=== PATIENT | female | born 1960 | race Caucasian/White ===

== ENCOUNTER 2018-06-20 11:10 | Emergency (ER) | payer MEDICAID ==
[~2018-06-20] VITALS: Ht 162.6 cm; Wt 68.2 kg
[~2018-06-20 11:10] MED LIST: PROC-8 PO; SUMA100T PO
--- NOTE | 2018-06-20 12:15 | NUR ---
Pt came from [facility]; recently lost her son and has been in severe depression. Denies SI at this time. Started new medication Seroquel on friday; states she felt like a hangover the first day after taking medication.
[2018-06-20] MEDS ORDERED: SUMAtriptan succ. 6 MG/0.5ml vial SQ ONE (12:40)
[2018-06-20] MEDS ORDERED: ketorolac trometh inj. 60 MG/2 ML VIAL IM ONE (12:40)
[2018-06-20] MEDS ORDERED: SUMA100T PO (12:48)
[2018-06-20 13:22] VITALS: BP 123/76
== END 2018-06-20 13:34 | disposition home or self-care (01) ==
LOC: ER 11:10
DX: G43.909 Migraine, unspecified, not intractable, without status migrainosus (principal); Z88.8 Allergy status to other drugs, medicaments and biological substances; Z88.5 Allergy status to narcotic agent; Z79.899 Other long term (current) drug therapy
CPT/HCPCS: 82948; 93005; 96372; 99283; J1885; J3030

== ENCOUNTER 2019-01-31 16:04 | Emergency (ER) | payer MEDICAID ==
[~2019-01-31] VITALS: Ht 162.6 cm; Wt 78.0 kg
[~2019-01-31 16:04] MED LIST changes: +CHOL10002 PO; +EST1T PO; +GABA-534 PO; +HYDR-3972 PO; +LEVO125T PO; +MIRT45TA83 PO; -PROC-8 PO; +QUET-1 PO; +QUET200T PO; -SUMA100T PO; +SUMA100T16 PO; +TIZA4TAB11 PO; +TOPI50TA24 PO; +VALP250C44 PO
[2019-01-31] MEDS ORDERED: ketorolac trometh inj. 60 MG/2 ML VIAL IM ONE (17:40)
[2019-01-31] MEDS ORDERED: LORazepam 1 MG tablet PO ONE (18:35)
[2019-01-31 18:43] VITALS: BP 140/90
== END 2019-01-31 18:44 | disposition home or self-care (01) ==
LOC: ER 16:04
DX: G43.909 Migraine, unspecified, not intractable, without status migrainosus (principal); Z88.1 Allergy status to other antibiotic agents; Z88.6 Allergy status to analgesic agent; Z79.899 Other long term (current) drug therapy
CPT/HCPCS: 96372; 99283; J1885

== ENCOUNTER 2019-02-02 17:36 | Emergency (ER) | payer MEDICAID ==
[~2019-02-02] VITALS: Ht 162.6 cm; Wt 80.6 kg
[2019-02-02] MEDS ORDERED: dexamethasone sod phosphate 10mg/ml inj IV STA (18:59)
[2019-02-02] MEDS ORDERED: LORazepam 2 mg/ml vial IV ONE (19:00)
[2019-02-02] MEDS ORDERED: metoclopramide 5 mg/ml inj IV ONE (19:00)
[2019-02-02] MEDS ORDERED: ketorolac trometh. 30mg/ml inj. IV ONE (19:00)
[2019-02-02] MEDS ORDERED: normal saline 1000ML IV soln IVB ONE (19:00)
[2019-02-02 20:35] VITALS: BP 135/76
== END 2019-02-02 20:37 | disposition home or self-care (01) ==
LOC: ER 17:37
DX: G43.909 Migraine, unspecified, not intractable, without status migrainosus (principal); R11.2 Nausea with vomiting, unspecified; Z88.1 Allergy status to other antibiotic agents; Z88.6 Allergy status to analgesic agent; Z79.899 Other long term (current) drug therapy
CPT/HCPCS: 96361; 96374; 96375; 99283; J1100; J1885; J2060; J2765; J7030

== ENCOUNTER 2019-02-06 14:43 | Emergency (ER) | payer MEDICAID ==
[~2019-02-06] VITALS: Ht 162.6 cm; Wt 59.0 kg
[2019-02-06] MEDS ORDERED: proCHLORperazine 10 MG/2 ml inj IV ONE (15:30)
[2019-02-06] MEDS ORDERED: diazepam inj 5 MG/ML inj. IV ONE (15:30)
[2019-02-06] MEDS ORDERED: normal saline 1000ML IV soln IVB ONE (15:30)
[2019-02-06] MEDS ORDERED: ketorolac tromethamine 15mg/ml inj. IV ONE (15:30)
[2019-02-06] MEDS ORDERED: RIZA10TA27 PO (17:45)
[2019-02-06] MEDS ORDERED: NAPR-56 PO (17:45)
[2019-02-06 18:07] VITALS: BP 132/82
== END 2019-02-06 18:09 | disposition home or self-care (01) ==
LOC: ER 14:43
DX: G44.209 Tension-type headache, unspecified, not intractable (principal); G43.909 Migraine, unspecified, not intractable, without status migrainosus; Z88.8 Allergy status to other drugs, medicaments and biological substances; Z88.5 Allergy status to narcotic agent; Z79.899 Other long term (current) drug therapy
CPT/HCPCS: 70450; 96361; 96374; 96375; 99284; J0780; J1885; J3360; J7030

== ENCOUNTER 2019-02-23 16:29 | Emergency (ER) | payer MEDICAID ==
[~2019-02-23] VITALS: Ht 162.6 cm; Wt 80.2 kg
[~2019-02-23 16:29] MED LIST changes: +NAPR-56 PO; +RIZA10TA27 PO
[2019-02-23] MEDS ORDERED: dexamethasone sod phosphate 10mg/ml inj IV STA (18:44)
[2019-02-23] MEDS ORDERED: normal saline 1000ML IV soln IVB ONE (18:45)
[2019-02-23] MEDS ORDERED: metoclopramide 5 mg/ml inj IV ONE (18:45)
[2019-02-23] MEDS ORDERED: LORazepam 2 mg/ml vial IV ONE (18:45)
[2019-02-23] MEDS ORDERED: ketorolac trometh. 30mg/ml inj. IV ONE (18:45)
[2019-02-23 19:50] VITALS: BP 130/80
== END 2019-02-23 19:51 | disposition home or self-care (01) ==
LOC: ER 16:30
DX: G43.909 Migraine, unspecified, not intractable, without status migrainosus (principal); Z88.8 Allergy status to other drugs, medicaments and biological substances; Z79.2 Long term (current) use of antibiotics; Z79.899 Other long term (current) drug therapy
CPT/HCPCS: 96374; 96375; 99283; J1100; J1885; J2060; J2765; J7030

== ENCOUNTER 2019-02-25 14:46 | Emergency (ER) | payer MEDICAID ==
[~2019-02-25] VITALS: Ht 162.6 cm; Wt 77.0 kg
[2019-02-25] MEDS ORDERED: ketorolac tromethamine 15mg/ml inj. IV ONE (15:50)
[2019-02-25] MEDS ORDERED: normal saline 1000ml 1,000 ML IV ONE (15:50)
[2019-02-25] MEDS ORDERED: diazepam inj 5 MG/ML inj. IV ONE (15:50)
[2019-02-25] MEDS ORDERED: proCHLORperazine 10 MG/2 ml inj IV ONE (15:50)
[2019-02-25 17:23] VITALS: BP 144/97
== END 2019-02-25 17:24 | disposition home or self-care (01) ==
LOC: ER 14:47
DX: G43.909 Migraine, unspecified, not intractable, without status migrainosus (principal); G89.29 Other chronic pain; Z88.8 Allergy status to other drugs, medicaments and biological substances; Z88.5 Allergy status to narcotic agent; Z79.899 Other long term (current) drug therapy
CPT/HCPCS: 96374; 96375; 99283; J0780; J1885; J3360; J7030

== ENCOUNTER 2019-03-04 12:03 | Emergency (ER) | payer MEDICAID ==
[~2019-03-04] VITALS: Ht 162.6 cm; Wt 79.3 kg
[2019-03-04 12:11] VITALS: BP 152/80
[2019-03-04] MEDS ORDERED: normal saline 1000ML IV soln IVB ONE (13:20)
[2019-03-04] MEDS ORDERED: diazepam inj 5 MG/ML inj. IV ONE (13:20)
[2019-03-04] MEDS ORDERED: ketorolac trometh. 30mg/ml inj. IV ONE (13:20)
[2019-03-04] MEDS ORDERED: proCHLORperazine 10 MG/2 ml inj IV ONE (13:20)
== END 2019-03-04 15:05 | disposition home or self-care (01) ==
LOC: ER 12:03
DX: G43.909 Migraine, unspecified, not intractable, without status migrainosus (principal); Z88.1 Allergy status to other antibiotic agents; Z88.6 Allergy status to analgesic agent; Z88.8 Allergy status to other drugs, medicaments and biological substances; Z79.899 Other long term (current) drug therapy
CPT/HCPCS: 96374; 96375; 99283; J0780; J1885; J3360; J7030

== ENCOUNTER 2019-03-13 07:53 | Emergency (ER) | payer MEDICAID ==
[~2019-03-13] VITALS: Ht 162.6 cm; Wt 79.8 kg
[~2019-03-13 07:53] MED LIST changes: -NAPR-56 PO
[2019-03-13] MEDS ORDERED: ibuprofen 200mg tablet PO ONE (08:15)
[2019-03-13] MEDS ORDERED: proCHLORperazine 10 MG/2 ml inj IV ONE (08:40)
[2019-03-13] MEDS ORDERED: normal saline 1000ML IV soln IVB ONE (08:40)
[2019-03-13] MEDS ORDERED: SUMAtriptan succ. 6 MG/0.5ml vial SQ ONE (10:10)
[2019-03-13 11:28] VITALS: BP 144/71
== END 2019-03-13 11:31 | disposition home or self-care (01) ==
LOC: ER 07:54
DX: G43.909 Migraine, unspecified, not intractable, without status migrainosus (principal); G89.29 Other chronic pain; Z98.890 Other specified postprocedural states; Z88.5 Allergy status to narcotic agent; Z88.8 Allergy status to other drugs, medicaments and biological substances; Z79.899 Other long term (current) drug therapy
CPT/HCPCS: 96372; 96374; 99283; J0780; J7030; J7040; J3030

== ENCOUNTER 2019-03-21 17:35 | Emergency (ER) | payer MEDICAID ==
[~2019-03-21] VITALS: Ht 162.6 cm; Wt 81.0 kg
[2019-03-21 17:38] VITALS: BP 155/70
[2019-03-21] MEDS ORDERED: diazepam 5mg tablet PO ONE (18:00)
[2019-03-21] MEDS ORDERED: LIDOcaine 1% 30ml preserv. free vial IJ ONE (18:00)
[2019-03-21] MEDS ORDERED: ondansetron 4mg rapidly disintigrating tab PO ONE (18:00)
[2019-03-21] MEDS ORDERED: proCHLORperazine 10 MG/2 ml inj IM ONE (18:00)
[2019-03-21] MEDS ORDERED: ketorolac tromethamine 15mg/ml inj. IM ONE (18:00)
--- NOTE | 2019-03-21 19:14 | NUR ---
PT IS RESTING QUIETLY IN DARK ROOM, SAID SHE IS FEELING BETTER
== END 2019-03-21 19:07 | disposition home or self-care (01) ==
LOC: ER 17:36
DX: G43.909 Migraine, unspecified, not intractable, without status migrainosus (principal); G89.29 Other chronic pain; M54.2 Cervicalgia; Z98.890 Other specified postprocedural states; Z88.1 Allergy status to other antibiotic agents; Z88.6 Allergy status to analgesic agent; Z88.5 Allergy status to narcotic agent; Z79.899 Other long term (current) drug therapy
CPT/HCPCS: 20552; 96372; 99284; J0780; J1885

== ENCOUNTER 2019-04-10 10:57 | Emergency (ER) | payer MEDICAID ==
[~2019-04-10] VITALS: Ht 162.6 cm; Wt 80.6 kg
[2019-04-10 11:01] VITALS: BP 131/77
[2019-04-10] MEDS ORDERED: dexamethasone sod phosphate 10mg/ml inj IM STA (12:33)
[2019-04-10] MEDS ORDERED: proCHLORperazine 10 MG/2 ml inj IM ONE (12:35)
[2019-04-10] MEDS ORDERED: ketorolac tromethamine 15mg/ml inj. IM ONE (12:35)
[2019-04-10] MEDS ORDERED: acetaminophen/codeine 120mg/12mg per 5ml cup PO ONE (14:10)
[2019-04-10] MEDS ORDERED: ACET-3068 PO (14:21)
== END 2019-04-10 15:00 | disposition home or self-care (01) ==
LOC: ER 10:57
DX: G43.909 Migraine, unspecified, not intractable, without status migrainosus (principal); G89.29 Other chronic pain; Z98.890 Other specified postprocedural states; Z88.1 Allergy status to other antibiotic agents; Z88.6 Allergy status to analgesic agent; Z88.5 Allergy status to narcotic agent; Z79.899 Other long term (current) drug therapy
CPT/HCPCS: 96372; 99284; J0780; J1100; J1885

== ENCOUNTER 2019-05-01 09:38 | Emergency (ER) | payer MEDICAID ==
[~2019-05-01] VITALS: Ht 162.6 cm; Wt 81.0 kg
--- NOTE | 2019-05-01 09:53 | NUR ---
PATIENT AMBULATORY TO ER #4 WITH C/O MIGRAINE HEADACHE X 2 DAYS, NOT RELIEVED BY PRESCRIPTION IMITREX. STATES NAUSEA AND PHOTOPHOBIA AT PRESENT.
[2019-05-01] MEDS ORDERED: SUMAtriptan succ. 6 MG/0.5ml vial SQ ONE (10:00)
[2019-05-01] MEDS ORDERED: proCHLORperazine 10 MG/2 ml inj IV ONE (11:50)
--- NOTE | 2019-05-01 12:58 | NUR ---
Pt reports the pain in her head is still approximately 7/10 and "feels like I have been run over by a vance truck." Pt is awaiting further orders or disposition.
--- NOTE | 2019-05-01 14:19 | NUR ---
Pt reports her headache is 6/10 and that is her daily pain level so she is ready to go home.
[2019-05-01 14:53] VITALS: BP 114/69
== END 2019-05-01 14:56 | disposition home or self-care (01) ==
LOC: ER 09:38
DX: G43.909 Migraine, unspecified, not intractable, without status migrainosus (principal); F43.20 Adjustment disorder, unspecified; F32.9 Major depressive disorder, single episode, unspecified; G89.29 Other chronic pain; Z98.890 Other specified postprocedural states; Z79.899 Other long term (current) drug therapy; Z88.8 Allergy status to other drugs, medicaments and biological substances; Z88.5 Allergy status to narcotic agent
CPT/HCPCS: 96372; 96374; 99284; J0780; J3030

== ENCOUNTER 2019-06-19 12:02 | Emergency (ER) | payer MEDICAID ==
[~2019-06-19] VITALS: Ht 193 cm; Wt 82.0 kg
[2019-06-19] MEDS ORDERED: normal saline 1000ml 1,000 ML IV ONE (12:45)
[2019-06-19] MEDS ORDERED: proCHLORperazine 10 MG/2 ml inj IV ONE (12:45)
[2019-06-19] MEDS ORDERED: ketorolac tromethamine 15mg/ml inj. IV ONE (14:15)
[2019-06-19 15:43] VITALS: BP 148/91
== END 2019-06-19 15:44 | disposition home or self-care (01) ==
LOC: ER 12:02
DX: G43.909 Migraine, unspecified, not intractable, without status migrainosus (principal); G89.29 Other chronic pain; Z98.890 Other specified postprocedural states; Z88.5 Allergy status to narcotic agent; Z88.8 Allergy status to other drugs, medicaments and biological substances; Z79.899 Other long term (current) drug therapy
CPT/HCPCS: 96374; 96375; 99284; J0780; J1885; J7030

== ENCOUNTER → 2019-09-02 | Emergency (ER) | payer MEDICAID ==
[~2019-09-02] VITALS: Ht 162.6 cm; Wt 86.4 kg
[~2019-09-02] MED LIST changes: +AMIT-189 PO; +DULO-31 PO; +LIDOcaine Viscous 15ml cup MM ONE; +PANT-47 PO; +TOPI25TA49 PO; +ZOLP5TAB8 PO; +aspirin 325mg tablet PO ONE; +famotidine 20mg tablet PO ONE; +iohexol 350MG/ML 100ml bottle IV ONE; +ketorolac trometh. 30mg/ml inj. IV ONE; +mag hydrox/Alum hydrox/simeth 30ml oral suspension PO ONE; +ondansetron/PF 4mg/2ml inj IV ONE; +pantoprazole 40 MG vial IV ONE
--- NOTE | 2019-09-02 21:18 | NUR ---
pt to xray then to her room. Blood drawn already
[2019-09-02 21:32] LABS: BASOPHILS % (AUTO) 0.5 % (0-1); EOSINOPHILS % (AUTO) 0.2 % (0-6); HEMATOCRIT 45.1 % (35.0-45.0); LYMPHOCYTES # (AUTO) 2.4 X10'3 (1.1-4.8); LYMPHOCYTES % (AUTO) 24.5 % (21-51); MEAN CORPUSCULAR HGB CONC 33.4 g/dL (33.0-36.5); MEAN PLATELET VOLUME 7.6 FL (7.4-10.4); MONOCYTES # (AUTO) 0.8 X10'3 (0-0.9); MONOCYTES % (AUTO) 8.8 % (2-12); NEUTROPHILS # (AUTO) 6.4 X10'3 (1.8-7.7); PLATELET COUNT 295 X10'3 (140-440); RED BLOOD COUNT 4.55 X10'6 (4.20-5.60); RED CELL DISTRIBUTION WIDTH 14.5 % (11.5-14.5); WHITE BLOOD COUNT 9.6 X10'3 (4.5-11.0)
[2019-09-02 21:54] LABS: ALANINE AMINOTRANSFERASE 142 U/L (12-78); ALBUMIN 3.8 G/DL (3.4-5.0); ALBUMIN/GLOBULIN RATIO 0.8 (1.1-1.5); ALKALINE PHOSPHATASE 118 IU/L (46-116); ANION GAP 12 (8-16); ASPARTATE AMINO TRANSFERASE 73 U/L (10-37); BILIRUBIN,TOTAL 0.5 MG/DL (0.1-1.0); BLOOD UREA NITROGEN 9 MG/DL (7-18); BUN/CREATININE RATIO 8.3 (6.6-38.0); CALCIUM 9.4 MG/DL (8.5-10.1); CHLORIDE 101 MMOL/L (99-107); CREATININE 1.08 MG/DL (0.40-0.90); GLUCOSE 109 MG/DL (70-104); POTASSIUM 3.8 MMOL/L (3.5-5.1); SODIUM 137 MMOL/L (135-145); TOTAL CARBON DIOXIDE 24.3 MMOL/L (24-32); TOTAL PROTEIN 8.8 G/DL (6.4-8.2); eGFR 52 ML/MIN
[2019-09-03 00:28] VITALS: BP 145/79
== END | disposition home or self-care (01) ==
LOC: ER 21:04
DX: R07.89 Other chest pain (principal); R10.9 Unspecified abdominal pain; R11.2 Nausea with vomiting, unspecified; I10 Essential (primary) hypertension; G89.29 Other chronic pain; Z90.710 Acquired absence of both cervix and uterus; Z98.890 Other specified postprocedural states; Z88.5 Allergy status to narcotic agent; Z88.8 Allergy status to other drugs, medicaments and biological substances; Z79.899 Other long term (current) drug therapy
CPT/HCPCS: 36415; 71045; 71275; 80053; 84484; 85025; 93005; 96374; 96375; 99285; C9113; J2405; Q9967; J1885

== ENCOUNTER 2019-09-06 14:31 | Inpatient (IN) | payer MEDICAID ==
[~2019-09-06] VITALS: Ht 162.6 cm; Wt 89.0 kg
[~2019-09-06 14:31] MED LIST changes: -AMIT-189 PO; -DULO-31 PO; -LIDOcaine Viscous 15ml cup MM ONE; -TOPI25TA49 PO; -ZOLP5TAB8 PO; -aspirin 325mg tablet PO ONE; -famotidine 20mg tablet PO ONE; -iohexol 350MG/ML 100ml bottle IV ONE; -ketorolac trometh. 30mg/ml inj. IV ONE; -mag hydrox/Alum hydrox/simeth 30ml oral suspension PO ONE; -ondansetron/PF 4mg/2ml inj IV ONE; -pantoprazole 40 MG vial IV ONE
[2019-09-06 15:04] LABS: BASOPHILS % (AUTO) 0.3 % (0-1); EOSINOPHILS # (AUTO) 0.1 X10'3 (0-0.9); EOSINOPHILS % (AUTO) 1.2 % (0-6); HEMATOCRIT 40.7 % (35.0-45.0); HEMOGLOBIN 13.9 g/dl (12.0-16.0); LYMPHOCYTES # (AUTO) 2.5 X10'3 (1.1-4.8); LYMPHOCYTES % (AUTO) 29.9 % (21-51); MEAN CORPUSCULAR HEMOGLOBIN 33.7 PG (27.0-31.0); MEAN CORPUSCULAR HGB CONC 34.2 g/dL (33.0-36.5); MEAN CORPUSCULAR VOLUME 98.5 FL (78-98); MEAN PLATELET VOLUME 7.6 FL (7.4-10.4); NEUTROPHILS # (AUTO) 4.7 X10'3 (1.8-7.7); NEUTROPHILS % (AUTO) 56.6 % (42-75); PLATELET COUNT 316 X10'3 (140-440); RED BLOOD COUNT 4.13 X10'6 (4.20-5.60); RED CELL DISTRIBUTION WIDTH 14.3 % (11.5-14.5); WHITE BLOOD COUNT 8.3 X10'3 (4.5-11.0)
[2019-09-06 15:10] LABS: ALANINE AMINOTRANSFERASE 104 U/L (12-78); ALKALINE PHOSPHATASE 163 IU/L (46-116); ANION GAP 15 (8-16); ASPARTATE AMINO TRANSFERASE 74 U/L (10-37); BILIRUBIN,TOTAL 0.9 MG/DL (0.1-1.0); BLOOD UREA NITROGEN 13 MG/DL (7-18); BUN/CREATININE RATIO 9.6 (6.6-38.0); CALCIUM 9.9 MG/DL (8.5-10.1); CHLORIDE 95 MMOL/L (99-107); CREATININE 1.36 MG/DL (0.40-0.90); GLUCOSE 104 MG/DL (70-104); SODIUM 132 MMOL/L (135-145); TOTAL PROTEIN 8.8 G/DL (6.4-8.2); eGFR 40 ML/MIN
[2019-09-06 15:22] LABS: ALBUMIN 3.2 G/DL (3.4-5.0); ALBUMIN/GLOBULIN RATIO 0.6 (1.1-1.5)
[2019-09-06 16:08] LABS: MAGNESIUM 2.3 MG/DL (1.5-2.4); PHOSPHORUS 4.2 MG/DL (2.3-4.5)
[2019-09-06] MEDS ORDERED: normal saline 1000ML IV soln IVB ONE ×2 (16:35→18:45)
[2019-09-06] MEDS ORDERED: potassium Cl 20 mEq SR tablet PO ONE (16:35)
[2019-09-06] MEDS ORDERED: ondansetron/PF 4mg/2ml inj IV ONE (16:50)
[2019-09-06 17:49] LABS: CLARITY,URINE CLOUDY (Clear); COLOR,URINE YELLOW (Yellow); GLUCOSE, URINE NEGATIVE (Neg); KETONES,URINE TRACE mg/dl (Neg); LEUKOCYTE ESTERASE ,URINE TRACE (Neg); NITRITES, URINE NEGATIVE (Neg); OCCULT BLOOD,URINE NEGATIVE (Neg); PROTEIN,URINE 30 mg/dl (Neg)
[2019-09-06 17:58] LABS: UA COLLECTION TYPE CLN CATCH MIDSTREAM
[2019-09-06 18:07] LABS: RBC,URINE 0-2 /HPF (0-2)
[2019-09-06 18:08] LABS: BACTERIA,URINE 2+ /HPF (Neg); MUCUS STRANDS MANY /LPF (Neg); SQUAMOUS EPITHELIAL CELL,UR MANY /LPF (FEW)
[2019-09-06] MEDS ORDERED: proCHLORperazine 10 MG/2 ml inj IV ONE (19:25)
[2019-09-06] MEDS ORDERED: fentaNYL/PF 50MCG/1 ML 2ML syringe IV ONE (19:25)
[2019-09-06] MEDS ORDERED: ondansetron/PF 4mg/2ml inj IV PRN (20:10)
[2019-09-06] MEDS ORDERED: magnesium 2GM in 50ml NS 50 ML IV PRN (20:10)
[2019-09-06] MEDS ORDERED: acetaminophen 325mg tablet PO PRN (20:10)
[2019-09-06] MEDS ORDERED: magnesium 4gm in 100ml NS 100 ML IV PRN (20:10)
[2019-09-06] MEDS ORDERED: diphenhydrAMINE 25mg capsule PO PRN (20:10)
[2019-09-06] MEDS ORDERED: magnesium hydroxide 30ml (MOM) UD suspension PO PRN (20:10)
[2019-09-06] MEDS ORDERED: mag hydrox/Alum hydrox/simeth 30ml oral suspension PO PRN (20:10)
[2019-09-06] MEDS ORDERED: NORMAL SALINE IV ONE (20:10)
[2019-09-06] MEDS ORDERED: magnesium Cl slow-release 64mg tablet PO PRN (20:10)
[2019-09-06] MEDS ORDERED: bisacodyl 10mg suppository rectal RC PRN (20:10)
[2019-09-06] MEDS ORDERED: potassium CL 10mEq/100ml bag 100 ML IV PRN (20:10)
[2019-09-06] MEDS ORDERED: potassium Cl 20 mEq SR tablet PO PRN ×2 (20:10)
[2019-09-06] MEDS ORDERED: SINCALIDE IV ONE (20:10)
[2019-09-06] MEDS ORDERED: fentaNYL/PF 50MCG/1 ML 2ML syringe IV PRN (20:10)
[2019-09-06] MEDS ORDERED: metoclopramide 5 mg/ml inj IV PRN (20:10)
[2019-09-06] MEDS ORDERED: diphenhydrAMINE 50 mg/ml inj IV PRN (20:10)
[2019-09-06] MEDS ORDERED: TOPI25TA49 PO (20:37)
[2019-09-06] MEDS ORDERED: DULO-31 PO (20:37)
[2019-09-06] MEDS ORDERED: PANT-47 PO (20:37)
[2019-09-06] MEDS ORDERED: AMIT-189 PO (20:37)
[2019-09-06] MEDS ORDERED: ZOLP5TAB8 PO (20:37)
[2019-09-06 20:38] LABS: HEMOGLOBIN A1C 5.6 % (4.5-6.2)
[2019-09-06] MEDS ORDERED: temazepam 15mg capsule PO PRN (21:00)
[2019-09-06 21:04] LABS: ETHANOL < 0.010 GM/DL (0.0-0.010)
[2019-09-06 21:15] LABS: URINE AMPHETAMINE SCREEN NEGATIVE (Neg); URINE BARBITUATE SCREEN NEGATIVE (Neg); URINE BENZODIAZEPINES SCREEN NEGATIVE (Neg); URINE CANNABINOID SCREEN NEGATIVE (Neg); URINE COCAINE SCREEN NEGATIVE (Neg); URINE METHADONE SCREEN NEGATIVE (Neg); URINE OPIATE SCREEN NEGATIVE (Neg); URINE PHENCYCLIDINE SCREEN NEGATIVE (Neg)
--- NOTE | 2019-09-06 21:52 | NUR ---
attemped to reach the floor for report.
--- NOTE | 2019-09-06 22:30 | NUR ---
PT ARRIVED FROM ER. VSS. PT HAS BEEN ORIENTED TO THE FLOOR. RECEIVED REPORT FROM GERTRUDIS PRIOR TO PT'S ARRIVAL.
[2019-09-06] MEDS: normal saline 1000ml 1,000 ML IV SCH (23:01)
[2019-09-06] MEDS ORDERED: zolpidem 5mg tablet PO PRN (23:10)
--- NOTE | 2019-09-06 23:17 | NUR ---
[id number] VERÓNICA DENSON 58 HERE FOR CHOLECYSTITIS HAS FENTANYL FOR PAIN BUT WE CAN'T GIVE ON OUR FLOOR. PT IS WILLING TO TRY DILAUDID. THANK YOU. FROM 0735 VICKI
[2019-09-06 23:26] VITALS: BP 141/77
[2019-09-07] VITALS (13 sets, daily range): BP systolic 91–150; BP diastolic 40–78
[2019-09-07] MEDS ORDERED: hyDROXYzine 50 mg/ml injection ***IM only IM PRN (00:45)
[2019-09-07] MEDS: morphine 4 MG/ML inj SYRINge IV PRN ×2 (01:16→10:56)
--- NOTE | 2019-09-07 06:20 | NUR ---
Problems reprioritized. Patient report given, questions answered & plan of care reviewed with GLENN JIM AND GLENN NELSON.
[2019-09-07 06:34] LABS: BASOPHILS % (AUTO) 0.6 % (0-1); EOSINOPHILS # (AUTO) 0.2 X10'3 (0-0.9); EOSINOPHILS % (AUTO) 4.2 % (0-6); HEMATOCRIT 36.2 % (35.0-45.0); HEMOGLOBIN 12.1 g/dl (12.0-16.0); LYMPHOCYTES # (AUTO) 1.3 X10'3 (1.1-4.8); LYMPHOCYTES % (AUTO) 23.6 % (21-51); MEAN CORPUSCULAR HEMOGLOBIN 32.8 PG (27.0-31.0); MEAN CORPUSCULAR HGB CONC 33.4 g/dL (33.0-36.5); MEAN CORPUSCULAR VOLUME 98.4 FL (78-98); MEAN PLATELET VOLUME 7.4 FL (7.4-10.4); MONOCYTES # (AUTO) 0.5 X10'3 (0-0.9); MONOCYTES % (AUTO) 9.7 % (2-12); NEUTROPHILS # (AUTO) 3.3 X10'3 (1.8-7.7); NEUTROPHILS % (AUTO) 61.9 % (42-75); PLATELET COUNT 268 X10'3 (140-440); RED BLOOD COUNT 3.68 X10'6 (4.20-5.60); RED CELL DISTRIBUTION WIDTH 14.3 % (11.5-14.5); WHITE BLOOD COUNT 5.3 X10'3 (4.5-11.0)
[2019-09-07 06:48] LABS: ALANINE AMINOTRANSFERASE 183 U/L (12-78); ALBUMIN 2.4 G/DL (3.4-5.0); ALBUMIN/GLOBULIN RATIO 0.5 (1.1-1.5); ALKALINE PHOSPHATASE 176 IU/L (46-116); ANION GAP 10 (8-16); ASPARTATE AMINO TRANSFERASE 310 U/L (10-37); BILIRUBIN,TOTAL 1.1 MG/DL (0.1-1.0); BLOOD UREA NITROGEN 11 MG/DL (7-18); BUN/CREATININE RATIO 12.6 (6.6-38.0); CALCIUM 8.3 MG/DL (8.5-10.1); CHLORIDE 107 MMOL/L (99-107); CREATININE 0.87 MG/DL (0.40-0.90); GLUCOSE 74 MG/DL (70-104); POTASSIUM 3.5 MMOL/L (3.5-5.1); SODIUM 140 MMOL/L (135-145); TOTAL CARBON DIOXIDE 23.2 MMOL/L (24-32); TOTAL PROTEIN 6.9 G/DL (6.4-8.2); eGFR 67 ML/MIN
--- NOTE | 2019-09-07 06:51 | NUR ---
Patient in room ORTHO 4015. I have received report from Heather ELIZABETH and had the opportunity to ask questions and assume patient care.
[2019-09-07 06:57] LABS: CHOL/HDL RATIO 4.4 (0.00-4.99); CHOLESTEROL 170 MG/DL (0-200); HDL CHOLESTEROL 39 MG/DL (35-60); LDL CHOLESTEROL 92 MG/DL (50-100); MAGNESIUM 1.8 MG/DL (1.5-2.4); PHOSPHORUS 2.7 MG/DL (2.3-4.5); TRIGLYCERIDES 97 MG/DL (20-135)
[2019-09-07] MEDS ORDERED: levoTHYROXINE 125mcg tablet PO SCH (08:00)
[2019-09-07] MEDS ORDERED: valproic acid 250mg capsule PO SCH (08:00)
[2019-09-07] MEDS: K and/or MAG REPLACEMENT MC SCH ×2 (08:00→19:45)
[2019-09-07] MEDS ORDERED: gabapentin 400mg capsule PO SCH (08:00)
[2019-09-07] MEDS: topiramate 25mg tablet PO SCH (08:16)
[2019-09-07] MEDS: pantoprazole 40mg Tablet.DR PO SCH (08:17)
[2019-09-07] MEDS: duloxetine 30mg CAPSULE.DR PO SCH (08:17)
[2019-09-07] MEDS: normal saline 1000ml 1,000 ML IV SCH ×2 (08:23→19:54)
[2019-09-07] MEDS ORDERED: SINCALIDE IV ONE (09:00)
[2019-09-07] MEDS ORDERED: NORMAL SALINE IV ONE (09:00)
[2019-09-07] MEDS: ketorolac tromethamine 15mg/ml inj. IV PRN (09:01)
[2019-09-07] MEDS ORDERED: BUPIVAcaine/PF 2.5 mg/ml (0.25%) 30ml vial ONE (14:37)
[2019-09-07] MEDS ORDERED: ringers solution, lacted 1,000 ML IV SCH (14:40)
[2019-09-07] MEDS ORDERED: ondansetron/PF 4mg/2ml inj IV PRN (14:40)
[2019-09-07] MEDS ORDERED: hydrALAZINE 20mg/ml inj. IV PRN (14:40)
[2019-09-07] MEDS ORDERED: labetalol 20mg/4ml (5mg/ml) syringe IV PRN (14:40)
[2019-09-07] MEDS ORDERED: fentaNYL/PF 50MCG/1 ML 2ML syringe IV PRN ×3 (14:40→17:30)
[2019-09-07] MEDS ORDERED: midazolam 2 mg/2 ml injection ONE ×3 (14:48→15:37)
[2019-09-07] MEDS ORDERED: LIDOcaine 2% (20mg/ml) 5ml vial ONE (14:48)
[2019-09-07] MEDS ORDERED: propofol inj 20 ML IV ONE (14:48)
[2019-09-07] MEDS ORDERED: rocuronium 10mg/ml inj IV ONE ×2 (14:49→17:22)
[2019-09-07] MEDS ORDERED: famotidine/PF 10 mg/ml inj IV ONE (15:20)
[2019-09-07] MEDS ORDERED: sevoflurane 250ml liquid IH ONE (15:31)
[2019-09-07] MEDS ORDERED: dexamethasone sod phosphate 10mg/ml inj ONE (15:31)
[2019-09-07] MEDS ORDERED: ondansetron/PF 4mg/2ml inj ONE (15:31)
[2019-09-07] MEDS ORDERED: albumin (Human) 5% 250ml BOTTLE IV ONE (15:31)
[2019-09-07] MEDS ORDERED: ePHEDrine 50MG/ML INJ. ONE (15:31)
[2019-09-07] MEDS ORDERED: levoFLOXACIN-Levaquin 500mg/D5 100 ML IV ONE (15:43)
[2019-09-07] MEDS ORDERED: fentaNYL/PF 50MCG/1 ML 2ML syringe ONE ×2 (15:56→17:07)
--- NOTE | 2019-09-07 16:20 | NUR ---
Problems reprioritized. Patient report given, questions answered & plan of care reviewed with Charissa ELIZABETH.
[2019-09-07] MEDS ORDERED: NORepinephrine 1 mg/ml inj IV ONE (17:05)
--- NOTE | 2019-09-07 18:25 | NUR ---
Received from OR via bed , accompanied by Anesthesiologist dr marshall and report given by Anesthesiolgist. patient vented, no s/s of pain, v/s stable, f/c draining clear yellow urine, restraints on bue, large abdomen dressing cdi w/ christa with minimal output. 20g rue, cl right neck. ARTLINE LUE. SEDATION DIPROVAN AT 5MCG/KG/MIN, FENTANYL GTT AT 35MCG/HR. SCD ON. CXY XRAY DONE AND ET TUBE ADJUSTED TO 21CM AT LIPS AFTER INSTRUCTED BY DR MARSHALL. SEE RT NOTES.
[2019-09-07 18:41] LABS: ABG BASE EXCESS -5.4 mmol/L (-2.0-2.0); ABG HCO3 19.1 mmol/L (22.0-26.0); ABG OXYGEN SATURATION 98.5 % (94-97); ABG PCO2 (T) 33.1 mmHg (32.0-45.0); ABG PO2 (T) 132.6 mmHg (75.0-100.0); FCOHb 0.3 % (0.0-3.9); FMetHb 0.3 % (0.0-1.5); FO2Hb 97.9 % (94-97); PATIENT TEMPERATURE 36.7; PEEP 5 cm H2O; RESPIRATORY RATE 12 b/min; TIDAL VOLUME 550 mL; TOTAL HEMOGLOBIN 10.2 G/dl (12.0-16.0)
--- NOTE | 2019-09-07 18:55 | NUR ---
patient vented, no s/s of pain, v/s stable, f/c draining clear yellow urine, restraints on bue, large abdomen dressing cdi w/ christa with minimal output. 20g rue, cl right neck. ARTLINE LUE. SEDATION DIPROVAN AT 10MCG/KG/MIN, FENTANYL GTT AT 50MCG/HR. SCD ON. ET TUBE 21CM AT LIPS . SEE RT NOTES. BG 85. NG TUBE LEFT NARES AT INTERMITTENT LWS. DR PASTOR AT BEDSIDE NOW. PATIENT RECOVERED IN CICU 2008. PATIENT WITH ALL BELONGINGS 2008 , REPORT GIVEN TO CICU RN WHO HAS TAKEN OVER PATIENT CARE. BED LOW, CALL LIGHT PRESENT AND VSS.
--- NOTE | 2019-09-07 19:00 | NUR ---
Patient in room CICU 2008. I have received report from Xander ELIZABETH from recovery and had the opportunity to ask questions and assume patient care.
[2019-09-07 19:01] LABS: BASOPHILS % (AUTO) 0.8 % (0-1); EOSINOPHILS # (AUTO) 0.2 X10'3 (0-0.9); EOSINOPHILS % (AUTO) 2.6 % (0-6); HEMOGLOBIN 9.4 g/dl (12.0-16.0); LYMPHOCYTES # (AUTO) 0.7 X10'3 (1.1-4.8); LYMPHOCYTES % (AUTO) 11.2 % (21-51); MEAN CORPUSCULAR HEMOGLOBIN 33.1 PG (27.0-31.0); MEAN CORPUSCULAR HGB CONC 33.6 g/dL (33.0-36.5); MEAN CORPUSCULAR VOLUME 98.7 FL (78-98); MEAN PLATELET VOLUME 7.3 FL (7.4-10.4); MONOCYTES # (AUTO) 0.3 X10'3 (0-0.9); MONOCYTES % (AUTO) 4.5 % (2-12); NEUTROPHILS % (AUTO) 80.9 % (42-75); PLATELET COUNT 229 X10'3 (140-440); RED BLOOD COUNT 2.83 X10'6 (4.20-5.60); RED CELL DISTRIBUTION WIDTH 14.2 % (11.5-14.5); WHITE BLOOD COUNT 6.1 X10'3 (4.5-11.0)
[2019-09-07 19:15] LABS: PARTIAL THROMBOPLASTIN TIME 29 SECONDS (22-32)
--- NOTE | 2019-09-07 19:15 | NUR ---
PT arrived to around 1814 accompanied by OR crew as well as online content developer's Xander and Caryl. PT in intubated and sedated, tolerating vent settings well. VSS. PT has CVL to RT neck and A-line to LT radial. PT has large Drsg to ABD that is CDI. MARLON in place with minimal serosanguineous drainage noted. Herrera in place draining to gravity. Bed is locked and low. Bilat soft wrist restraints in place and secure. Will continue to monitor.
[2019-09-07 19:17] LABS: ALANINE AMINOTRANSFERASE 314 U/L (12-78); ALBUMIN 2.3 G/DL (3.4-5.0); ALBUMIN/GLOBULIN RATIO 0.7 (1.1-1.5); ALKALINE PHOSPHATASE 165 IU/L (46-116); ANION GAP 14 (8-16); ASPARTATE AMINO TRANSFERASE 589 U/L (10-37); BILIRUBIN,TOTAL 1.2 MG/DL (0.1-1.0); BLOOD UREA NITROGEN 12 MG/DL (7-18); BUN/CREATININE RATIO 16.4 (6.6-38.0); CALCIUM 7.9 MG/DL (8.5-10.1); CHLORIDE 105 MMOL/L (99-107); CREATININE 0.73 MG/DL (0.40-0.90); GLUCOSE 88 MG/DL (70-104); MAGNESIUM 1.9 MG/DL (1.5-2.4); PHOSPHORUS 2.5 MG/DL (2.3-4.5); POTASSIUM 3.7 MMOL/L (3.5-5.1); SODIUM 139 MMOL/L (135-145); TOTAL CARBON DIOXIDE 20.3 MMOL/L (24-32); TOTAL PROTEIN 5.8 G/DL (6.4-8.2); eGFR 82 ML/MIN
[2019-09-07] MEDS: propofol 1000mg/100ml bottle 100 ML IV SCH (19:55)
[2019-09-07] MEDS: FENTANYL-0.9 % NACL/PF 100 ML IV PRN (19:56)
[2019-09-07] MEDS ORDERED: amitriptyline 50mg tablet PO SCH (21:00)
[2019-09-07] MEDS ORDERED: mirtazapine 15mg tablet PO SCH (21:00)
[2019-09-07] MEDS ORDERED: tizanidine 4mg tablet PO SCH (21:00)
[2019-09-07] MEDS: valproate sod 250mg/5ml UD oral syrup NG SCH (21:03)
[2019-09-07] MEDS ORDERED: levoTHYROXINE 125mcg tablet NG SCH (21:05)
[2019-09-07] MEDS ORDERED: mag hydrox/Alum hydrox/simeth 30ml oral suspension NG PRN (21:08)
[2019-09-07] MEDS ORDERED: POTASSIUM BICARB 20meq eff tab 20 MEQ TABLET.EFF NG PRN (21:12)
[2019-09-07] MEDS ORDERED: zolpidem 5mg tablet NG PRN (21:13)
[2019-09-07] MEDS ORDERED: amitriptyline 50mg tablet NG ONE (21:25)
[2019-09-07] MEDS ORDERED: gabapentin 400mg capsule NG ONE (21:25)
[2019-09-07] MEDS ORDERED: mirtazapine 15mg tablet NG ONE (21:25)
[2019-09-08] VITALS (28 sets, daily range): BP systolic 86–159; BP diastolic 44–66
--- NOTE | 2019-09-08 02:00 | NUR ---
PT resting with no s/s of distress noted. PT tolerating sedation well, wakes up easily. Bed is locked and low. Bilat soft wrist restraints in place and secure. Will continue to monitor.
[2019-09-08 02:50] LABS: BASOPHILS % (AUTO) 0.2 % (0-1); EOSINOPHILS % (AUTO) 0.1 % (0-6); HEMATOCRIT 26.5 % (35.0-45.0); HEMOGLOBIN 8.7 g/dl (12.0-16.0); LYMPHOCYTES # (AUTO) 0.7 X10'3 (1.1-4.8); LYMPHOCYTES % (AUTO) 11.3 % (21-51); MEAN CORPUSCULAR HEMOGLOBIN 32.6 PG (27.0-31.0); MEAN CORPUSCULAR HGB CONC 32.9 g/dL (33.0-36.5); MEAN CORPUSCULAR VOLUME 99.1 FL (78-98); MEAN PLATELET VOLUME 7.7 FL (7.4-10.4); MONOCYTES # (AUTO) 0.4 X10'3 (0-0.9); MONOCYTES % (AUTO) 7.3 % (2-12); NEUTROPHILS % (AUTO) 81.1 % (42-75); PLATELET COUNT 253 X10'3 (140-440); RED BLOOD COUNT 2.67 X10'6 (4.20-5.60); RED CELL DISTRIBUTION WIDTH 14.4 % (11.5-14.5); WHITE BLOOD COUNT 6.1 X10'3 (4.5-11.0)
[2019-09-08 03:10] LABS: ALANINE AMINOTRANSFERASE 270 U/L (12-78); ALBUMIN/GLOBULIN RATIO 0.6 (1.1-1.5); ALKALINE PHOSPHATASE 146 IU/L (46-116); ANION GAP 11 (8-16); ASPARTATE AMINO TRANSFERASE 392 U/L (10-37); BILIRUBIN,TOTAL 0.6 MG/DL (0.1-1.0); BLOOD UREA NITROGEN 8 MG/DL (7-18); CALCIUM 7.7 MG/DL (8.5-10.1); CHLORIDE 107 MMOL/L (99-107); CREATININE 0.57 MG/DL (0.40-0.90); GLUCOSE 105 MG/DL (70-104); MAGNESIUM 1.8 MG/DL (1.5-2.4); PHOSPHORUS 3.2 MG/DL (2.3-4.5); POTASSIUM 4.1 MMOL/L (3.5-5.1); SODIUM 139 MMOL/L (135-145); TOTAL CARBON DIOXIDE 21.2 MMOL/L (24-32); TOTAL PROTEIN 5.5 G/DL (6.4-8.2); TRIGLYCERIDES 87 MG/DL (20-135); eGFR > 90 ML/MIN
[2019-09-08 03:50] LABS: ABG BASE EXCESS -5.2 mmol/L (-2.0-2.0); ABG HCO3 18.2 mmol/L (22.0-26.0); ABG OXYGEN SATURATION 95.7 % (94-97); ABG PCO2 (T) 29.1 mmHg (32.0-45.0); ABG PO2 (T) 81.7 mmHg (75.0-100.0); FMetHb 0.1 % (0.0-1.5); FO2Hb 95.6 % (94-97); PATIENT TEMPERATURE 37.7; PEEP 5 cm H2O; RESPIRATORY RATE 12 b/min; TIDAL VOLUME 550 mL; TOTAL HEMOGLOBIN 9.4 G/dl (12.0-16.0)
[2019-09-08] MEDS: normal saline 1000ml 1,000 ML IV SCH ×3 (04:08→21:52)
[2019-09-08] MEDS: propofol 1000mg/100ml bottle 100 ML IV SCH ×3 (04:09→23:58)
[2019-09-08] MEDS: FENTANYL-0.9 % NACL/PF 100 ML IV PRN ×2 (05:15→15:55)
--- NOTE | 2019-09-08 06:43 | NUR ---
Problems reprioritized. Patient report given, questions answered & plan of care reviewed with Noemi ELIZABETH.
[2019-09-08] MEDS: valproate sod 250mg/5ml UD oral syrup NG SCH ×2 (07:34→20:33)
[2019-09-08] MEDS: levoFLOXACIN-Levaquin 750MG/D5 150 ML IV SCH (07:34)
[2019-09-08] MEDS: pantoprazole 40mg Tablet.DR PO SCH (07:34)
[2019-09-08] MEDS: duloxetine 30mg CAPSULE.DR PO SCH (07:34)
[2019-09-08] MEDS: acetaminophen 325mg/10.15ml oral unit dose solution NG PRN ×2 (07:35→23:59)
[2019-09-08] MEDS: gabapentin 400mg capsule NG SCH ×2 (07:35→20:33)
[2019-09-08] MEDS: topiramate 25mg tablet PO SCH (07:35)
[2019-09-08] MEDS: K and/or MAG REPLACEMENT MC SCH ×2 (08:00→20:00)
--- NOTE | 2019-09-08 13:13 | NUR ---
Patient refusing oral care. Educated on importance and risk of VAP.
--- NOTE | 2019-09-08 16:01 | NUR ---
Patient is intubated s/p open kalpana 09/06, pending back to OR for closure. Will be NPO for surgery. Will continue to follow and monitor for OR closure and extubation. If prolonged intubation after abdominal closure will benefit from nutrition support. Recommend: 1. if prolonged intubation after surgical wound closure may benefit from nutrition support to meet needs. 2. weight per rx Addendum: 09/08/19 at [address] Amended: Links added.
[2019-09-08] MEDS ORDERED: midazolam 2 mg/2 ml injection ONE (18:17)
[2019-09-08] MEDS ORDERED: fentaNYL/PF 50MCG/1 ML 2ML syringe ONE (18:17)
[2019-09-08] MEDS ORDERED: sevoflurane 250ml liquid IH ONE (18:27)
--- NOTE | 2019-09-08 18:28 | NUR ---
Patient in room CICU 2009. I have received report from Noemi ELIZABETH, and had the opportunity to ask questions and assume patient care.
[2019-09-08 18:34] LABS: BASOPHILS # (AUTO) 0.1 X10'3 (0-0.2); EOSINOPHILS # (AUTO) 0.1 X10'3 (0-0.9); EOSINOPHILS % (AUTO) 0.8 % (0-6); HEMOGLOBIN 8.8 g/dl (12.0-16.0); LYMPHOCYTES # (AUTO) 1.5 X10'3 (1.1-4.8); LYMPHOCYTES % (AUTO) 18.9 % (21-51); MEAN CORPUSCULAR HEMOGLOBIN 33.2 PG (27.0-31.0); MEAN CORPUSCULAR HGB CONC 33.7 g/dL (33.0-36.5); MEAN CORPUSCULAR VOLUME 98.4 FL (78-98); MEAN PLATELET VOLUME 7.6 FL (7.4-10.4); MONOCYTES # (AUTO) 0.8 X10'3 (0-0.9); MONOCYTES % (AUTO) 10.1 % (2-12); NEUTROPHILS # (AUTO) 5.4 X10'3 (1.8-7.7); NEUTROPHILS % (AUTO) 69.2 % (42-75); PLATELET COUNT 293 X10'3 (140-440); RED BLOOD COUNT 2.64 X10'6 (4.20-5.60); RED CELL DISTRIBUTION WIDTH 14.4 % (11.5-14.5); WHITE BLOOD COUNT 7.9 X10'3 (4.5-11.0)
[2019-09-08] MEDS ORDERED: rocuronium 10mg/ml inj IV ONE (18:47)
--- NOTE | 2019-09-08 19:30 | NUR ---
RECD PT FROM OR, REPORT GIVEN BY DR OLVERA. AGREE WITH NOTE FROM PRIMARY RN.
--- NOTE | 2019-09-08 19:30 | NUR ---
PT arrived back from OR accompanied by OR team as well as acetone recovery worker at bedside. PT placed on bedside monitor. PT remains intubated and sedated. Tolerating well. O2 sat >97%. VSS. MARLON drain to RUQ with serosanguineous drainage noted. IVF infusing to CVL, A-Line to LT radial is transduced to pressure tubing and lines have been zeroed. Bilat soft wrist restraints in place and secure. Bed is locked and low. Will continue to monitor.
--- NOTE | 2019-09-08 20:20 | NUR ---
Report GIVEN to receiving nurse. Transferred CAre to [facility]. Belongings in pt room. vss. oral care completed. ngt to liws. fc patent, scds on. Special Issues communicated to receiving nurse.
[2019-09-08] MEDS: mineral oil/petrolatum ophthal oint EACHEYE SCH (20:33)
[2019-09-08] MEDS: amitriptyline 50mg tablet NG SCH (20:33)
[2019-09-08] MEDS: tizanidine 4mg tablet NG SCH (20:34)
[2019-09-08] MEDS: lactobacillus rhamnosus 10,000 MMU CELLS/CAPSULE NG SCH (20:34)
[2019-09-08] MEDS: mirtazapine 15mg tablet NG SCH (20:34)
[2019-09-09] VITALS (22 sets, daily range): BP systolic 88–129; BP diastolic 45–81
--- NOTE | 2019-09-09 | NUR ---
PRN Tylenol given for temp of 38.4. Will continue to monitor.
[2019-09-09 03:10] LABS: ABG HCO3 20.1 mmol/L (22.0-26.0); ABG OXYGEN SATURATION 98.7 % (94-97); ABG PCO2 (T) 30.9 mmHg (32.0-45.0); ABG PO2 (T) 137.2 mmHg (75.0-100.0); FCOHb 0.3 % (0.0-3.9); FMetHb 0.1 % (0.0-1.5); FO2Hb 98.3 % (94-97); PATIENT TEMPERATURE 38.6; PEEP 5 cm H2O; RESPIRATORY RATE 14 b/min; TIDAL VOLUME 500 mL; TOTAL HEMOGLOBIN 9.3 G/dl (12.0-16.0)
[2019-09-09 03:15] LABS: BASOPHILS % (AUTO) 0.4 % (0-1); EOSINOPHILS # (AUTO) 0.1 X10'3 (0-0.9); HEMATOCRIT 25.7 % (35.0-45.0); HEMOGLOBIN 8.6 g/dl (12.0-16.0); LYMPHOCYTES # (AUTO) 1.3 X10'3 (1.1-4.8); LYMPHOCYTES % (AUTO) 18.7 % (21-51); MEAN CORPUSCULAR HEMOGLOBIN 33.1 PG (27.0-31.0); MEAN CORPUSCULAR HGB CONC 33.5 g/dL (33.0-36.5); MEAN CORPUSCULAR VOLUME 98.8 FL (78-98); MEAN PLATELET VOLUME 7.7 FL (7.4-10.4); MONOCYTES # (AUTO) 0.6 X10'3 (0-0.9); MONOCYTES % (AUTO) 9.2 % (2-12); NEUTROPHILS # (AUTO) 4.8 X10'3 (1.8-7.7); NEUTROPHILS % (AUTO) 70.7 % (42-75); PLATELET COUNT 298 X10'3 (140-440); RED CELL DISTRIBUTION WIDTH 14.8 % (11.5-14.5); WHITE BLOOD COUNT 6.8 X10'3 (4.5-11.0)
[2019-09-09 03:32] LABS: ALANINE AMINOTRANSFERASE 307 U/L (12-78); ALBUMIN 1.7 G/DL (3.4-5.0); ALBUMIN/GLOBULIN RATIO 0.5 (1.1-1.5); ALKALINE PHOSPHATASE 142 IU/L (46-116); ANION GAP 11 (8-16); ASPARTATE AMINO TRANSFERASE 467 U/L (10-37); BLOOD UREA NITROGEN 6 MG/DL (7-18); BUN/CREATININE RATIO 7.8 (6.6-38.0); CALCIUM 7.4 MG/DL (8.5-10.1); CHLORIDE 106 MMOL/L (99-107); CREATININE 0.77 MG/DL (0.40-0.90); GLUCOSE 102 MG/DL (70-104); MAGNESIUM 1.8 MG/DL (1.5-2.4); PHOSPHORUS 2.5 MG/DL (2.3-4.5); POTASSIUM 3.1 MMOL/L (3.5-5.1); SODIUM 141 MMOL/L (135-145); TOTAL CARBON DIOXIDE 24.2 MMOL/L (24-32); TOTAL PROTEIN 5.2 G/DL (6.4-8.2); eGFR 77 ML/MIN
[2019-09-09] MEDS: FENTANYL-0.9 % NACL/PF 100 ML IV PRN (03:33)
[2019-09-09] MEDS: mineral oil/petrolatum ophthal oint EACHEYE SCH ×4 (03:33→20:00)
[2019-09-09] MEDS: potassium CL 10mEq/100ml bag 100 ML IV PRN ×4 (03:36→10:36)
[2019-09-09] MEDS: POTASSIUM BICARB 20meq eff tab 20 MEQ TABLET.EFF NG PRN ×2 (05:13→09:26)
[2019-09-09] MEDS: propofol 1000mg/100ml bottle 100 ML IV SCH (05:26)
--- NOTE | 2019-09-09 06:21 | NUR ---
Problems reprioritized. Patient report given, questions answered & plan of care reviewed with Noemi ELIZABETH.
[2019-09-09] MEDS: valproate sod 250mg/5ml UD oral syrup NG SCH ×2 (07:14→19:45)
[2019-09-09] MEDS: levoFLOXACIN-Levaquin 750MG/D5 150 ML IV SCH (07:14)
[2019-09-09] MEDS: pantoprazole 40mg Tablet.DR PO SCH (07:15)
[2019-09-09] MEDS: levoTHYROXINE 125mcg tablet NG SCH (07:15)
[2019-09-09] MEDS: topiramate 25mg tablet PO SCH (07:15)
[2019-09-09] MEDS: gabapentin 400mg capsule NG SCH ×2 (07:15→19:45)
[2019-09-09] MEDS: duloxetine 30mg CAPSULE.DR PO SCH (07:15)
[2019-09-09] MEDS: lactobacillus rhamnosus 10,000 MMU CELLS/CAPSULE NG SCH ×2 (07:15→19:45)
[2019-09-09] MEDS: acetaminophen 325mg/10.15ml oral unit dose solution NG PRN (07:16)
[2019-09-09] MEDS: normal saline 1000ml 1,000 ML IV SCH ×2 (07:19→18:07)
[2019-09-09] MEDS: K and/or MAG REPLACEMENT MC SCH ×2 (07:19→20:00)
[2019-09-09 09:08] LABS: MAGNESIUM 1.7 MG/DL (1.5-2.4); PHOSPHORUS 2.5 MG/DL (2.3-4.5); POTASSIUM 3.3 MMOL/L (3.5-5.1)
--- NOTE | 2019-09-09 10:45 | NUR ---
Dr. Santiago at bedside. New order to extubate patient based on current weaning parameters. at to d/c arterial line from left wrist.
--- NOTE | 2019-09-09 11:15 | NUR ---
RT at at bedside. Patient extubated, tolerated procedure well. SP)2 99% on 2L via NC. Will continue to monitor.
[2019-09-09] MEDS: morphine 4 MG/ML inj SYRINge IV PRN ×2 (12:12→16:48)
--- NOTE | 2019-09-09 18:20 | NUR ---
Dr Bill at bedside assessing PT. PT asked when the NGT can come out. Nursing received verbal order for NGT ok to be removed if PT has has less than 200ml out. Will continue to monitor.
[2019-09-09] MEDS ORDERED: morphine/NS 5 mg/ml CADD 50 ML IV SCH (18:32)
[2019-09-09] MEDS ORDERED: CADD PCA waste documentation MC PRN (18:35)
[2019-09-09] MEDS ORDERED: naloxone 0.4 mg/ml inj IV PRN (18:35)
[2019-09-09] MEDS: ketorolac tromethamine 15mg/ml inj. IV PRN (18:49)
[2019-09-09] MEDS: tizanidine 4mg tablet NG SCH (21:00)
[2019-09-09] MEDS: mirtazapine 15mg tablet NG SCH (21:45)
[2019-09-09] MEDS: amitriptyline 50mg tablet NG SCH (21:46)
[2019-09-10] VITALS (24 sets, daily range): BP systolic 88–149; BP diastolic 44–80
[2019-09-10] MEDS: mineral oil/petrolatum ophthal oint EACHEYE SCH ×4 (02:00→20:00)
[2019-09-10] MEDS: normal saline 1000ml 1,000 ML IV SCH ×3 (02:56→18:08)
[2019-09-10] MEDS: acetaminophen 325mg/10.15ml oral unit dose solution NG PRN (03:01)
[2019-09-10 03:10] LABS: BASOPHILS % (AUTO) 0.6 % (0-1); EOSINOPHILS # (AUTO) 0.2 X10'3 (0-0.9); EOSINOPHILS % (AUTO) 3.1 % (0-6); LYMPHOCYTES # (AUTO) 1.7 X10'3 (1.1-4.8); LYMPHOCYTES % (AUTO) 21.4 % (21-51); MEAN CORPUSCULAR HGB CONC 33.3 g/dL (33.0-36.5); MEAN CORPUSCULAR VOLUME 99.2 FL (78-98); MEAN PLATELET VOLUME 7.4 FL (7.4-10.4); MONOCYTES # (AUTO) 0.8 X10'3 (0-0.9); MONOCYTES % (AUTO) 9.5 % (2-12); NEUTROPHILS # (AUTO) 5.2 X10'3 (1.8-7.7); NEUTROPHILS % (AUTO) 65.4 % (42-75); PLATELET COUNT 310 X10'3 (140-440); RED BLOOD COUNT 2.42 X10'6 (4.20-5.60); RED CELL DISTRIBUTION WIDTH 14.7 % (11.5-14.5)
--- NOTE | 2019-09-10 03:15 | NUR ---
PT has temp of 38.3. PRN Tylenol given. Will continue to monitor.
[2019-09-10 03:26] LABS: ALANINE AMINOTRANSFERASE 260 U/L (12-78); ALBUMIN 1.7 G/DL (3.4-5.0); ALBUMIN/GLOBULIN RATIO 0.5 (1.1-1.5); ALKALINE PHOSPHATASE 136 IU/L (46-116); ANION GAP 6 (8-16); ASPARTATE AMINO TRANSFERASE 305 U/L (10-37); BILIRUBIN,TOTAL 1.1 MG/DL (0.1-1.0); BLOOD UREA NITROGEN 5 MG/DL (7-18); BUN/CREATININE RATIO 7.9 (6.6-38.0); CALCIUM 8.1 MG/DL (8.5-10.1); CHLORIDE 106 MMOL/L (99-107); CREATININE 0.63 MG/DL (0.40-0.90); GLUCOSE 83 MG/DL (70-104); PHOSPHORUS 3.1 MG/DL (2.3-4.5); POTASSIUM 3.3 MMOL/L (3.5-5.1); SODIUM 140 MMOL/L (135-145); TOTAL CARBON DIOXIDE 28.1 MMOL/L (24-32); TOTAL PROTEIN 5.4 G/DL (6.4-8.2); eGFR > 90 ML/MIN
[2019-09-10] MEDS: potassium Cl 20mEq/100mL bag 100 ML IV PRN ×3 (04:35→10:59)
--- NOTE | 2019-09-10 06:04 | NUR ---
NGT D/C'd. PT had zero output this shift. PT has had zero complaints of nausea and tolerated PO meds. PT tolerated well.
--- NOTE | 2019-09-10 06:11 | NUR ---
CADD reassessment for 050 2.40mL given, 02/02 attemps, Resivor volume- 46.1
--- NOTE | 2019-09-10 06:30 | NUR ---
Patient in room CICU 2008. I have received report from GLENN Perez and had the opportunity to ask questions and assume patient care.
--- NOTE | 2019-09-10 06:46 | NUR ---
Problems reprioritized. Patient report given, questions answered & plan of care reviewed with Catherine ELIZABETH.
[2019-09-10] MEDS: morphine/NS 5 mg/ml CADD 50 ML IV SCH ×9 (07:00→21:00)
[2019-09-10] MEDS: K and/or MAG REPLACEMENT MC SCH ×2 (08:00→20:00)
[2019-09-10] MEDS: levoTHYROXINE 125mcg tablet NG SCH (08:49)
[2019-09-10] MEDS: valproate sod 250mg/5ml UD oral syrup NG SCH (08:49)
[2019-09-10] MEDS: topiramate 25mg tablet PO SCH (08:49)
[2019-09-10] MEDS: gabapentin 400mg capsule NG SCH ×2 (08:49→20:31)
[2019-09-10] MEDS: pantoprazole 40mg Tablet.DR PO SCH (08:49)
[2019-09-10] MEDS: lactobacillus rhamnosus 10,000 MMU CELLS/CAPSULE NG SCH ×2 (08:49→20:31)
[2019-09-10] MEDS: duloxetine 30mg CAPSULE.DR PO SCH (08:49)
[2019-09-10] MEDS: levoFLOXACIN-Levaquin 750MG/D5 150 ML IV SCH (08:55)
--- NOTE | 2019-09-10 13:53 | NUR ---
Reassessment: per MD note not passed flatus yet. Abdomen closed 09/07. Is extubated. Working with PT. Will have PO diet when cleared by surgery. Per surgeon note has persistent. Recommend: 1. Diet advancement as medically indicated to regular 2. monitor need for ONS if suboptimal PO intake 2. weight per rx Addendum: 09/10/19 at [address] Amended: Links added.
[2019-09-10] MEDS: ketorolac tromethamine 15mg/ml inj. IV PRN (17:31)
--- NOTE | 2019-09-10 18:19 | NUR ---
Patient in room CICU 2008. I have received report from GLENN Alexander and had the opportunity to ask questions and assume patient care.
--- NOTE | 2019-09-10 18:36 | NUR ---
Problems reprioritized. Patient report given, questions answered & plan of care reviewed with GLENN Evangelista.
[2019-09-10] MEDS: tizanidine 4mg tablet NG SCH (20:31)
[2019-09-10] MEDS: mirtazapine 15mg tablet NG SCH (20:32)
[2019-09-10] MEDS: amitriptyline 50mg tablet NG SCH (20:32)
[2019-09-10] MEDS: divalproex sodium 250mg tablet PO SCH (20:35)
[2019-09-11] VITALS (24 sets, daily range): BP systolic 94–131; BP diastolic 42–79
[2019-09-11] MEDS: morphine/NS 5 mg/ml CADD 50 ML IV SCH ×12 (01:00→23:00)
[2019-09-11] MEDS: mineral oil/petrolatum ophthal oint EACHEYE SCH ×4 (01:06→19:01)
[2019-09-11 03:13] LABS: BASOPHILS % (AUTO) 0.7 % (0-1); EOSINOPHILS # (AUTO) 0.3 X10'3 (0-0.9); EOSINOPHILS % (AUTO) 4.4 % (0-6); HEMATOCRIT 22.8 % (35.0-45.0); HEMOGLOBIN 7.5 g/dl (12.0-16.0); LYMPHOCYTES # (AUTO) 1.4 X10'3 (1.1-4.8); LYMPHOCYTES % (AUTO) 20.6 % (21-51); MEAN CORPUSCULAR HEMOGLOBIN 32.5 PG (27.0-31.0); MEAN CORPUSCULAR VOLUME 98.5 FL (78-98); MEAN PLATELET VOLUME 7.3 FL (7.4-10.4); MONOCYTES # (AUTO) 0.8 X10'3 (0-0.9); MONOCYTES % (AUTO) 11.2 % (2-12); NEUTROPHILS # (AUTO) 4.4 X10'3 (1.8-7.7); NEUTROPHILS % (AUTO) 63.1 % (42-75); PLATELET COUNT 348 X10'3 (140-440); RED BLOOD COUNT 2.32 X10'6 (4.20-5.60); RED CELL DISTRIBUTION WIDTH 14.9 % (11.5-14.5); WHITE BLOOD COUNT 6.9 X10'3 (4.5-11.0)
[2019-09-11 03:31] LABS: ALANINE AMINOTRANSFERASE 169 U/L (12-78); ALBUMIN 1.6 G/DL (3.4-5.0); ALBUMIN/GLOBULIN RATIO 0.4 (1.1-1.5); ALKALINE PHOSPHATASE 122 IU/L (46-116); ANION GAP 8 (8-16); ASPARTATE AMINO TRANSFERASE 125 U/L (10-37); BILIRUBIN,TOTAL 0.5 MG/DL (0.1-1.0); BLOOD UREA NITROGEN 4 MG/DL (7-18); BUN/CREATININE RATIO 6.7 (6.6-38.0); CALCIUM 7.9 MG/DL (8.5-10.1); CHLORIDE 104 MMOL/L (99-107); GLUCOSE 100 MG/DL (70-104); MAGNESIUM 1.8 MG/DL (1.5-2.4); PHOSPHORUS 3.1 MG/DL (2.3-4.5); POTASSIUM 3.5 MMOL/L (3.5-5.1); SODIUM 139 MMOL/L (135-145); TOTAL CARBON DIOXIDE 26.9 MMOL/L (24-32); TOTAL PROTEIN 5.4 G/DL (6.4-8.2); eGFR > 90 ML/MIN
--- NOTE | 2019-09-11 04:23 | NUR ---
Adriano Elam NP called. Addressed decreased urine output of 25-50 ml/hr throughout shift. Patient with BP 95/46 (57). Order for Albumin 5% 250mL IV once.
[2019-09-11] MEDS ORDERED: albumin (Human) 5% 250ml 250 ML IV ONE (04:25)
[2019-09-11 04:43] LABS: ANISOCYTOSIS 1+; PLATELET ESTIMATE NORMAL; POLYCHROMASIA FEW; STOMATOCYTES 1+
[2019-09-11] MEDS: magnesium hydroxide 30ml (MOM) UD suspension NG PRN (05:42)
--- NOTE | 2019-09-11 06:25 | NUR ---
Problems reprioritized. Patient report given, questions answered & plan of care reviewed with GLENN London.
--- NOTE | 2019-09-11 06:37 | NUR ---
Patient in room CICU 2008. I have received report from GLENN Evangelista and had the opportunity to ask questions and assume patient care.
[2019-09-11] MEDS: K and/or MAG REPLACEMENT MC SCH ×2 (07:20→19:01)
[2019-09-11] MEDS: normal saline 1000ml 1,000 ML IV SCH (07:42)
[2019-09-11] MEDS: levoFLOXACIN-Levaquin 750MG/D5 150 ML IV SCH (07:50)
[2019-09-11] MEDS: enoxaparin 40mg/0.4ml syringe SUBCUT SCH (08:00)
[2019-09-11] MEDS: duloxetine 30mg CAPSULE.DR PO SCH (08:05)
[2019-09-11] MEDS: gabapentin 400mg capsule NG SCH ×2 (08:05→20:15)
[2019-09-11] MEDS: lactobacillus rhamnosus 10,000 MMU CELLS/CAPSULE NG SCH ×2 (08:05→20:15)
[2019-09-11] MEDS: levoTHYROXINE 125mcg tablet NG SCH (08:05)
[2019-09-11] MEDS: divalproex sodium 250mg tablet PO SCH ×2 (08:05→20:15)
[2019-09-11] MEDS: pantoprazole 40mg Tablet.DR PO SCH (08:05)
[2019-09-11] MEDS: topiramate 25mg tablet PO SCH (08:05)
--- NOTE | 2019-09-11 18:09 | NUR ---
Problems reprioritized. Patient report given, questions answered & plan of care reviewed with GLENN Rossi.
[2019-09-11] MEDS: mirtazapine 15mg tablet NG SCH (20:15)
[2019-09-11] MEDS: amitriptyline 50mg tablet NG SCH (20:15)
[2019-09-11] MEDS: tizanidine 4mg tablet NG SCH (20:15)
[2019-09-11] MEDS: ketorolac tromethamine 15mg/ml inj. IV PRN (20:20)
[2019-09-12] VITALS (8 sets, daily range): BP systolic 90–113; BP diastolic 50–59
--- NOTE | 2019-09-12 00:23 | NUR ---
Problems reprioritized. Patient report given, questions answered & plan of care reviewed with Violet ELIZABETH. Patient is being transferred to [facility] 3016[facility]. All belongings packaged and sent with patient. Central line and bernal d/c'd prior to transfer. Patient is aware and agreeable to transfer. No apparent s/s of distress noted.
[2019-09-12] MEDS: morphine/NS 5 mg/ml CADD 50 ML IV SCH ×7 (01:00→13:00)
--- NOTE | 2019-09-12 06:32 | NUR ---
Problems reprioritized. Patient report given, questions answered & plan of care reviewed with GLENN Deleon .
--- NOTE | 2019-09-12 06:55 | NUR ---
Patient in room PCU 3016. I have received report from Josselyn ELIZABETH and had the opportunity to ask questions and assume patient care. CADD settings reviewed with nurse. Pt. offers no complaints at this time.
[2019-09-12] MEDS: K and/or MAG REPLACEMENT MC SCH ×2 (08:00→20:00)
[2019-09-12] MEDS: lactobacillus rhamnosus 10,000 MMU CELLS/CAPSULE NG SCH ×2 (08:03→21:14)
[2019-09-12] MEDS: pantoprazole 40mg Tablet.DR PO SCH (08:03)
[2019-09-12] MEDS: levoTHYROXINE 125mcg tablet NG SCH (08:03)
[2019-09-12] MEDS: gabapentin 400mg capsule NG SCH ×2 (08:03→21:14)
[2019-09-12] MEDS: divalproex sodium 250mg tablet PO SCH ×2 (08:03→21:15)
[2019-09-12] MEDS: duloxetine 30mg CAPSULE.DR PO SCH (08:03)
[2019-09-12] MEDS: enoxaparin 40mg/0.4ml syringe SUBCUT SCH (08:04)
[2019-09-12] MEDS: levoFLOXACIN-Levaquin 750MG/D5 150 ML IV SCH (08:04)
[2019-09-12] MEDS: topiramate 25mg tablet PO SCH (08:08)
[2019-09-12 09:49] LABS: BASOPHILS % (AUTO) 0.6 % (0-1); EOSINOPHILS # (AUTO) 0.3 X10'3 (0-0.9); EOSINOPHILS % (AUTO) 3.6 % (0-6); HEMATOCRIT 26.2 % (35.0-45.0); HEMOGLOBIN 8.7 g/dl (12.0-16.0); LYMPHOCYTES # (AUTO) 1.1 X10'3 (1.1-4.8); LYMPHOCYTES % (AUTO) 14.1 % (21-51); MEAN CORPUSCULAR HEMOGLOBIN 32.6 PG (27.0-31.0); MEAN CORPUSCULAR HGB CONC 33.1 g/dL (33.0-36.5); MEAN CORPUSCULAR VOLUME 98.7 FL (78-98); MEAN PLATELET VOLUME 7.3 FL (7.4-10.4); MONOCYTES # (AUTO) 0.9 X10'3 (0-0.9); MONOCYTES % (AUTO) 11.5 % (2-12); NEUTROPHILS # (AUTO) 5.5 X10'3 (1.8-7.7); NEUTROPHILS % (AUTO) 70.2 % (42-75); PLATELET COUNT 400 X10'3 (140-440); RED BLOOD COUNT 2.66 X10'6 (4.20-5.60); RED CELL DISTRIBUTION WIDTH 14.9 % (11.5-14.5); WHITE BLOOD COUNT 7.8 X10'3 (4.5-11.0)
[2019-09-12 09:52] LABS: ALBUMIN 1.9 G/DL (3.4-5.0); ANION GAP 7 (8-16); BLOOD UREA NITROGEN 7 MG/DL (7-18); BUN/CREATININE RATIO 11.7 (6.6-38.0); CALCIUM 8.4 MG/DL (8.5-10.1); CHLORIDE 102 MMOL/L (99-107); GLUCOSE 114 MG/DL (70-104); POTASSIUM 3.5 MMOL/L (3.5-5.1); SODIUM 138 MMOL/L (135-145); TOTAL CARBON DIOXIDE 29.5 MMOL/L (24-32); eGFR > 90 ML/MIN
[2019-09-12 10:19] LABS: NUCLEATED RED BLOOD CELLS 3 /100WBC (0-0); TOTAL CELLS COUNTED 100
[2019-09-12 10:24] LABS: PLATELET ESTIMATE NORMAL; POLYCHROMASIA FEW; STOMATOCYTES 2+
[2019-09-12] MEDS: normal saline 1000ml 1,000 ML IV SCH (10:59)
--- NOTE | 2019-09-12 12:54 | NUR ---
Problems reprioritized. Patient report given, questions answered & plan of care reviewed with Rylee ELIZABETH. pt. is attempting to eat lunch at this time, offers no complaints.
[2019-09-12] MEDS: lactose-reduced food (Ensure Enlive) - 237ml bottle PO SCH ×2 (13:00→14:00)
--- NOTE | 2019-09-12 15:31 | NUR ---
Received pt from PCU on W/C. A&O x4. small amount of serosanguineous drainage from MARLON site noted. cleaned and covered with small gauze. midline abd dressing clean and dry. O2sat on R/A 87%. 2L O2 N/C placed; o2sat up to 95%.
[2019-09-12] MEDS: magnesium hydroxide 30ml (MOM) UD suspension NG PRN (17:41)
--- NOTE | 2019-09-12 18:40 | NUR ---
Patient in room ANANDA 349. I have received report from Viviane ELIZABETH and had the opportunity to ask questions and assume patient care.
--- NOTE | 2019-09-12 18:48 | NUR ---
Problems reprioritized. Patient report given, questions answered & plan of care reviewed with GLENN Medeiros.
[2019-09-12] MEDS: mirtazapine 15mg tablet NG SCH (21:14)
[2019-09-12] MEDS: amitriptyline 50mg tablet NG SCH (21:14)
[2019-09-12] MEDS: tizanidine 4mg tablet NG SCH (21:15)
[2019-09-12] MEDS: oxyCODONE/APAP 5-325mg tablet PO PRN (21:15)
[2019-09-13] VITALS: BP 96/57
[2019-09-13 05:13] LABS: BASOPHILS % (AUTO) 0.3 % (0-1); EOSINOPHILS # (AUTO) 0.2 X10'3 (0-0.9); HEMATOCRIT 23.6 % (35.0-45.0); HEMOGLOBIN 7.9 g/dl (12.0-16.0); LYMPHOCYTES # (AUTO) 1.6 X10'3 (1.1-4.8); LYMPHOCYTES % (AUTO) 17.6 % (21-51); MEAN CORPUSCULAR HEMOGLOBIN 32.8 PG (27.0-31.0); MEAN CORPUSCULAR HGB CONC 33.3 g/dL (33.0-36.5); MEAN CORPUSCULAR VOLUME 98.5 FL (78-98); MEAN PLATELET VOLUME 7.4 FL (7.4-10.4); MONOCYTES # (AUTO) 0.9 X10'3 (0-0.9); MONOCYTES % (AUTO) 9.5 % (2-12); NEUTROPHILS # (AUTO) 6.5 X10'3 (1.8-7.7); NEUTROPHILS % (AUTO) 70.6 % (42-75); PLATELET COUNT 409 X10'3 (140-440); RED CELL DISTRIBUTION WIDTH 15.2 % (11.5-14.5); WHITE BLOOD COUNT 9.2 X10'3 (4.5-11.0)
[2019-09-13 05:15] LABS: ALBUMIN 1.8 G/DL (3.4-5.0); ANION GAP 4 (8-16); BLOOD UREA NITROGEN 6 MG/DL (7-18); BUN/CREATININE RATIO 8.5 (6.6-38.0); CALCIUM 8.4 MG/DL (8.5-10.1); CHLORIDE 105 MMOL/L (99-107); CREATININE 0.71 MG/DL (0.40-0.90); GLUCOSE 106 MG/DL (70-104); MAGNESIUM 2.1 MG/DL (1.5-2.4); POTASSIUM 3.5 MMOL/L (3.5-5.1); SODIUM 139 MMOL/L (135-145); eGFR 84 ML/MIN
[2019-09-13 05:49] LABS: NUCLEATED RED BLOOD CELLS 2 /100WBC (0-0); PLATELET ESTIMATE NORMAL; TOTAL CELLS COUNTED 100
[2019-09-13 05:50] LABS: HYPOCHROMASIA 1+; STOMATOCYTES 2+
--- NOTE | 2019-09-13 06:19 | NUR ---
Problems reprioritized. Patient report given, questions answered & plan of care reviewed with Rylee ELIZABETH.
--- NOTE | 2019-09-13 07:02 | NUR ---
Patient in room ANANDA 349. I have received report from jd ELIZABETH and had the opportunity to ask questions and assume patient care.
[2019-09-13 07:25] VITALS: BP 114/58
[2019-09-13] MEDS: enoxaparin 40mg/0.4ml syringe SUBCUT SCH (07:37)
[2019-09-13] MEDS: gabapentin 400mg capsule NG SCH ×2 (07:38→21:15)
[2019-09-13] MEDS: duloxetine 30mg CAPSULE.DR PO SCH (07:38)
[2019-09-13] MEDS: pantoprazole 40mg Tablet.DR PO SCH (07:38)
[2019-09-13] MEDS: lactobacillus rhamnosus 10,000 MMU CELLS/CAPSULE NG SCH ×2 (07:38→21:14)
[2019-09-13] MEDS: topiramate 25mg tablet PO SCH (07:38)
[2019-09-13] MEDS: divalproex sodium 250mg tablet PO SCH ×2 (07:39→21:14)
[2019-09-13] MEDS: levoTHYROXINE 125mcg tablet NG SCH (07:39)
[2019-09-13] MEDS: oxyCODONE/APAP 5-325mg tablet PO PRN ×3 (07:42→21:14)
[2019-09-13] MEDS: K and/or MAG REPLACEMENT MC SCH ×2 (07:48→20:00)
[2019-09-13] MEDS: lactose-reduced food (Ensure Enlive) - 237ml bottle PO SCH ×3 (07:48→18:26)
[2019-09-13 11:00] VITALS: BP 103/44
[2019-09-13] MEDS ORDERED: NORMAL SALINE IV ONE (11:45)
[2019-09-13] MEDS ORDERED: SINCALIDE IV ONE (11:45)
--- NOTE | 2019-09-13 16:46 | NUR ---
patient seen by KORI Rae ordered. And resulted see report. Patient mrfivated x2 for pain with effect Addendum: 09/13/19 at 1801 by Rylee Kline RN patient medicated.
--- NOTE | 2019-09-13 18:02 | NUR ---
Joseluis drained 25 mls slightly darkish serosang drainage seen by Dr Bill. Ambulated to BR x3, small bowel movements x3. all cares given.
--- NOTE | 2019-09-13 18:40 | NUR ---
Patient in room ANANDA 349. I have received report from Rylee ELIZABETH and had the opportunity to ask questions and assume patient care.
--- NOTE | 2019-09-13 18:41 | NUR ---
Problems reprioritized. Patient report given, questions answered & plan of care reviewed with Charmaine ELIZABETH.
[2019-09-13 20:00] VITALS: BP 105/58
[2019-09-13] MEDS: tizanidine 4mg tablet NG SCH (21:13)
[2019-09-13] MEDS: mirtazapine 15mg tablet NG SCH (21:13)
[2019-09-13] MEDS: amitriptyline 50mg tablet NG SCH (21:14)
[2019-09-14] VITALS: BP 107/52
[2019-09-14] MEDS: oxyCODONE/APAP 5-325mg tablet PO PRN ×2 (04:38→09:09)
[2019-09-14 05:39] LABS: BASOPHILS % (AUTO) 0.3 % (0-1); EOSINOPHILS # (AUTO) 0.1 X10'3 (0-0.9); EOSINOPHILS % (AUTO) 1.2 % (0-6); HEMATOCRIT 22.9 % (35.0-45.0); HEMOGLOBIN 7.4 g/dl (12.0-16.0); LYMPHOCYTES # (AUTO) 1.9 X10'3 (1.1-4.8); LYMPHOCYTES % (AUTO) 16.3 % (21-51); MEAN CORPUSCULAR HEMOGLOBIN 31.9 PG (27.0-31.0); MEAN CORPUSCULAR HGB CONC 32.5 g/dL (33.0-36.5); MEAN CORPUSCULAR VOLUME 98.2 FL (78-98); MEAN PLATELET VOLUME 7.7 FL (7.4-10.4); MONOCYTES # (AUTO) 1.1 X10'3 (0-0.9); MONOCYTES % (AUTO) 9.7 % (2-12); NEUTROPHILS # (AUTO) 8.6 X10'3 (1.8-7.7); NEUTROPHILS % (AUTO) 72.5 % (42-75); PLATELET COUNT 439 X10'3 (140-440); RED BLOOD COUNT 2.33 X10'6 (4.20-5.60); RED CELL DISTRIBUTION WIDTH 15.5 % (11.5-14.5); WHITE BLOOD COUNT 11.9 X10'3 (4.5-11.0)
[2019-09-14 05:42] LABS: ALBUMIN 1.8 G/DL (3.4-5.0); ANION GAP 7 (8-16); BLOOD UREA NITROGEN 6 MG/DL (7-18); BUN/CREATININE RATIO 6.7 (6.6-38.0); CALCIUM 8.3 MG/DL (8.5-10.1); CHLORIDE 104 MMOL/L (99-107); GLUCOSE 119 MG/DL (70-104); POTASSIUM 3.4 MMOL/L (3.5-5.1); SODIUM 135 MMOL/L (135-145); TOTAL CARBON DIOXIDE 24.3 MMOL/L (24-32); eGFR 64 ML/MIN
--- NOTE | 2019-09-14 07:07 | NUR ---
Patient in room ANANDA 349. I have received report from Charmaine ELIZABETH and had the opportunity to ask questions and assume patient care.
[2019-09-14 07:54] VITALS: BP 99/51
[2019-09-14] MEDS: K and/or MAG REPLACEMENT MC SCH (08:00)
[2019-09-14] MEDS: pantoprazole 40mg Tablet.DR PO SCH (08:32)
[2019-09-14] MEDS: duloxetine 30mg CAPSULE.DR PO SCH (08:32)
[2019-09-14] MEDS: lactobacillus rhamnosus 10,000 MMU CELLS/CAPSULE NG SCH (08:32)
[2019-09-14] MEDS: divalproex sodium 250mg tablet PO SCH (08:32)
[2019-09-14] MEDS: gabapentin 400mg capsule NG SCH (08:32)
[2019-09-14] MEDS: topiramate 25mg tablet PO SCH (08:32)
[2019-09-14] MEDS: levoTHYROXINE 125mcg tablet NG SCH (08:32)
[2019-09-14] MEDS: lactose-reduced food (Ensure Enlive) - 237ml bottle PO SCH ×2 (08:33→13:51)
[2019-09-14] MEDS: enoxaparin 40mg/0.4ml syringe SUBCUT SCH (08:33)
[2019-09-14] MEDS ORDERED: potassium Cl 20 mEq SR tablet PO STA (09:12)
--- NOTE | 2019-09-14 09:59 | NUR ---
Dr Oseguera called Dr Bill and received orders to DC MARLON drain.
[2019-09-14 11:00] VITALS: BP 126/47
--- NOTE | 2019-09-14 12:23 | NUR ---
Dr Oseguera aware afternoon vitals showed patient to have a temp of 100.3 when I went back into room to reaccess patients temp was [address] Dr Oseguera aware and still ok for transfer to [facility], he feels might be a little atelectasis.
--- NOTE | 2019-09-14 13:45 | NUR ---
Patient report called to Andreia ELIZABETH at [facility] all questions answered. Aware of patient temp issues today.
--- NOTE | 2019-09-14 13:50 | NUR ---
PAGER ID: [phone] MESSAGE: Yadi_surg [id number] Antonio now temp is 102 just making sure we are still good for picking machine operator helper to zena at 1400 Addendum: 09/14/19 at 1505 by Yadi Baltazar RN Temp now 100.7
[2019-09-14 13:51] VITALS: BP 115/61
== END 2019-09-14 14:20 | DRG 263 ==
LOC: ER 14:32 → ED HOLD 20:07 → ORTHO 4S 22:23 → SUR 3N 09-07 16:49 → PACU 09-07 16:52 → CICU 2S 09-07 18:22 → PCU 3S 09-12 00:35 → SUR 3N 09-12 14:20
PROVIDERS: ADMIT Family Medicine; ATTEND Internal Medicine
PROC: 2W23X4Z Dressing of Abdominal Wall using Bandage (ICD-10-PCS; 2019-09-07)
PROC: 0FT40ZZ Resection of Gallbladder, Open Approach (ICD-10-PCS; principal; 2019-09-07 15:39)
PROC: 2W5 Placement, Anatomical Regions, Removal (ICD-10-PCS; 2019-09-08)
DX: K81.0 Acute cholecystitis (principal); J96.00 Acute respiratory failure, unspecified whether with hypoxia or hypercapnia; E03.9 Hypothyroidism, unspecified; E87.1 Hypo-osmolality and hyponatremia; E87.6 Hypokalemia; F32.9 Major depressive disorder, single episode, unspecified; I10 Essential (primary) hypertension; K56.7 Ileus, unspecified; N17.9 Acute kidney failure, unspecified; R58 Hemorrhage, not elsewhere classified; G47.00 Insomnia, unspecified; E43 Unspecified severe protein-calorie malnutrition; D62 Acute posthemorrhagic anemia; Z79.899 Other long term (current) drug therapy; Z80.8 Family history of malignant neoplasm of other organs or systems; Z88.8 Allergy status to other drugs, medicaments and biological substances; Z90.711 Acquired absence of uterus with remaining cervical stump; Z98.1 Arthrodesis status
CPT/HCPCS: 36415; 36600; 71045; 74176; 76700; 78226; 78227; 80048; 80053; 80061; 80305; 80320; 81001; 82803; 82948; 83036; 83735; 84100; 84132; 84443; 84478; 84484; 85018; 85025; 85610; 85730; 86885; 86900; 86901; 86920; 87081; 93005; 94002; 94003; 94667; 94668; 94760; 96361; 96374; 96375; 97110; 97116; 97161; 97530; 99285; A4215; A4618; A6253; A6258; A6402; A6407; A6449; A7000; A9537; C1758; G0378; J0780; J1100; J1650; J1885; J1956; J2001; J2250; J2270; J2405; J2704; J2765; J3010; J3410; J3480; J3490; J7030; J7040; J7050; J7120; P9045

== ENCOUNTER 2019-09-17 09:17 | Outpatient (CLI) | payer MEDICAID ==
[~2019-09-17 09:17] MED LIST changes: +AMIT-189 PO; +DULO-31 PO; -EST1T PO; -HYDR-3972 PO; -QUET-1 PO; -QUET200T PO; -RIZA10TA27 PO; +TOPI25TA49 PO; -TOPI50TA24 PO; +ZOLP5TAB8 PO; +iohexol 350MG/ML 100ml bottle IV ONE
[2019-09-17] MEDS ORDERED: iohexol 300mg/ml 100ml inj. ONE (09:19)
[2019-09-17] MEDS ORDERED: BACI1CAP6 PO (17:59)
[2019-09-17] MEDS ORDERED: SENN1TAB82 PO (17:59)
[2019-09-17] MEDS ORDERED: zolpidem 5mg tablet PO PRN (19:05)
[2019-09-17] MEDS ORDERED: SUMATRIPTAN SUCCINATE PO PRN (19:05)
[2019-09-17] MEDS ORDERED: sennosides/docusate sodium tablet PO SCH (20:00)
[2019-09-17] MEDS ORDERED: gabapentin 400mg capsule PO SCH (20:00)
[2019-09-17] MEDS ORDERED: valproic acid 250mg capsule PO SCH (20:00)
[2019-09-17] MEDS ORDERED: BACILLUS COAGULANS PO SCH (20:00)
[2019-09-17] MEDS ORDERED: non-formulary drug (Mirtazapine (Remeron) 1 TAB) PO SCH (21:00)
[2019-09-17] MEDS ORDERED: amitriptyline 50mg tablet PO SCH (21:00)
[2019-09-17] MEDS ORDERED: tizanidine 4mg tablet PO SCH (21:00)
[2019-09-18] MEDS ORDERED: duloxetine 30mg CAPSULE.DR PO SCH (08:00)
[2019-09-18] MEDS ORDERED: topiramate 25mg tablet PO SCH (08:00)
[2019-09-18] MEDS ORDERED: pantoprazole 40mg Tablet.DR PO SCH (08:00)
[2019-09-18] MEDS ORDERED: levoTHYROXINE 125mcg tablet PO SCH (08:00)
[2019-09-18] MEDS ORDERED: fentaNYL/PF 50MCG/1 ML 2ML syringe ONE ×2 (10:33→10:45)
[2019-09-18] MEDS ORDERED: midazolam 2 mg/2 ml injection ONE ×2 (10:33→10:45)
== END 2019-09-17 23:59 | disposition home or self-care (01) ==
LOC: 64 CT 09:17
PROVIDERS: ATTEND Specialist
DX: K81.0 Acute cholecystitis (principal); L03.311 Cellulitis of abdominal wall
CPT/HCPCS: 74177; Q9967; J2250; J3010

== ENCOUNTER 2019-09-17 16:45 | Inpatient (IN) | payer MEDICAID ==
[~2019-09-17] VITALS: Ht 162.6 cm; Wt 86.4 kg
[~2019-09-17 16:45] MED LIST changes: -iohexol 350MG/ML 100ml bottle IV ONE
[2019-09-17] MEDS ORDERED: vancomycin/NS 1 GM ADD-VANTAGE 250 ML IV ONE (17:20)
[2019-09-17] MEDS ORDERED: ondansetron/PF 4mg/2ml inj IV ONE (17:20)
[2019-09-17] MEDS ORDERED: normal saline 1000ML IV soln IV ONE (17:20)
[2019-09-17] MEDS ORDERED: piperacillin/tazo 3.375gm/50ml 50 ML IV ONE (17:20)
[2019-09-17] MEDS ORDERED: BACI1CAP6 PO (17:59)
[2019-09-17] MEDS ORDERED: SENN1TAB82 PO (17:59)
[2019-09-17 18:08] LABS: BASOPHILS # (AUTO) 0.1 X10'3 (0-0.2); BASOPHILS % (AUTO) 0.6 % (0-1); EOSINOPHILS # (AUTO) 0.2 X10'3 (0-0.9); EOSINOPHILS % (AUTO) 1.8 % (0-6); HEMOGLOBIN 7.6 g/dl (12.0-16.0); LYMPHOCYTES # (AUTO) 1.5 X10'3 (1.1-4.8); LYMPHOCYTES % (AUTO) 16.5 % (21-51); MEAN CORPUSCULAR HEMOGLOBIN 31.7 PG (27.0-31.0); MEAN CORPUSCULAR HGB CONC 32.9 g/dL (33.0-36.5); MEAN CORPUSCULAR VOLUME 96.3 FL (78-98); MONOCYTES % (AUTO) 10.9 % (2-12); NEUTROPHILS # (AUTO) 6.5 X10'3 (1.8-7.7); NEUTROPHILS % (AUTO) 70.2 % (42-75); PLATELET COUNT 562 X10'3 (140-440); RED BLOOD COUNT 2.39 X10'6 (4.20-5.60); RED CELL DISTRIBUTION WIDTH 16.2 % (11.5-14.5); WHITE BLOOD COUNT 9.3 X10'3 (4.5-11.0)
[2019-09-17 18:24] LABS: ALANINE AMINOTRANSFERASE 37 U/L (12-78); ALBUMIN 1.8 G/DL (3.4-5.0); ALBUMIN/GLOBULIN RATIO 0.4 (1.1-1.5); ALKALINE PHOSPHATASE 103 IU/L (46-116); ANION GAP 9 (8-16); ASPARTATE AMINO TRANSFERASE 36 U/L (10-37); BILIRUBIN,TOTAL 0.3 MG/DL (0.1-1.0); BLOOD UREA NITROGEN 9 MG/DL (7-18); CALCIUM 8.4 MG/DL (8.5-10.1); CHLORIDE 104 MMOL/L (99-107); CREATININE 0.82 MG/DL (0.40-0.90); GLUCOSE 96 MG/DL (70-104); MAGNESIUM 2.1 MG/DL (1.5-2.4); POTASSIUM 3.2 MMOL/L (3.5-5.1); SODIUM 138 MMOL/L (135-145); TOTAL CARBON DIOXIDE 25.4 MMOL/L (24-32); TOTAL PROTEIN 6.6 G/DL (6.4-8.2); eGFR 71 ML/MIN
[2019-09-17] MEDS ORDERED: potassium CL 10mEq/100ml bag 100 ML IV PRN ×2 (19:00)
[2019-09-17] MEDS ORDERED: magnesium hydroxide 30ml (MOM) UD suspension PO PRN (19:00)
[2019-09-17] MEDS ORDERED: acetaminophen 325mg tablet PO PRN ×2 (19:00)
[2019-09-17] MEDS ORDERED: ondansetron/PF 4mg/2ml inj IV PRN (19:00)
[2019-09-17] MEDS ORDERED: hyDROXYzine 50 mg/ml injection ***IM only IM PRN (19:00)
[2019-09-17] MEDS ORDERED: mag hydrox/Alum hydrox/simeth 30ml oral suspension PO PRN (19:00)
[2019-09-17] MEDS ORDERED: magnesium 2GM in 50ml NS 50 ML IV PRN (19:00)
[2019-09-17] MEDS ORDERED: HYDROcodone/acetaminophen 5mg/325mg tablet PO PRN (19:00)
[2019-09-17] MEDS ORDERED: magnesium 4gm in 100ml NS 100 ML IV PRN (19:00)
[2019-09-17] MEDS ORDERED: morphine 5 MG/ML injection IV PRN (19:00)
[2019-09-17] MEDS ORDERED: morphine 2 MG/ML inj. syringe IV PRN (19:00)
[2019-09-17] MEDS ORDERED: potassium Cl 20 mEq SR tablet PO PRN (19:00)
[2019-09-17] MEDS ORDERED: acetaminophen 650mg rectal suppository RC PRN (19:00)
[2019-09-17] MEDS ORDERED: bisacodyl 10mg suppository rectal RC PRN (19:00)
[2019-09-17] MEDS ORDERED: magnesium Cl slow-release 64mg tablet PO PRN (19:00)
[2019-09-17 19:18] LABS: CLARITY,URINE CLEAR (Clear); COLOR,URINE YELLOW (Yellow); GLUCOSE, URINE NEGATIVE (Neg); KETONES,URINE NEGATIVE (Neg); LEUKOCYTE ESTERASE ,URINE NEGATIVE (Neg); NITRITES, URINE NEGATIVE (Neg); OCCULT BLOOD,URINE NEGATIVE (Neg); PROTEIN,URINE NEGATIVE (Neg); UROBILINOGEN,URINE 0.2 E.U/dL (0.2-1.0)
[2019-09-17] MEDS: potassium Cl 20 mEq SR tablet PO PRN (19:20)
[2019-09-17] MEDS ORDERED: SUMATRIPTAN SUCCINATE PO PRN (19:25)
[2019-09-17] MEDS ORDERED: zolpidem 5mg tablet PO PRN (19:25)
--- NOTE | 2019-09-17 19:40 | NUR ---
Received report from ER nurse Nadir ELIZABETH. Will assume patient care.
[2019-09-17] MEDS: normal saline 1000ml 1,000 ML IV SCH (19:57)
[2019-09-17 19:58] LABS: UA COLLECTION TYPE OTHER
[2019-09-17 20:00] VITALS: BP 151/70
[2019-09-17] MEDS: K and/or MAG REPLACEMENT MC SCH (20:00)
[2019-09-17] MEDS ORDERED: BACILLUS COAGULANS PO SCH (20:00)
[2019-09-17] MEDS ORDERED: VANCOmycin 1250MG/NS 250ml Bag 250 ML IV SCH (20:00)
[2019-09-17] MEDS ORDERED: SUMAtriptan 25 MG tablet PO PRN (20:18)
[2019-09-17] MEDS ORDERED: temazepam 15mg capsule PO PRN (21:00)
[2019-09-17] MEDS: amitriptyline 50mg tablet PO SCH (21:16)
[2019-09-17] MEDS: mirtazapine 15mg tablet PO SCH (21:16)
[2019-09-17] MEDS: gabapentin 400mg capsule PO SCH (21:16)
[2019-09-17] MEDS: sennosides/docusate sodium tablet PO SCH (21:16)
[2019-09-17] MEDS: tizanidine 4mg tablet PO SCH (21:16)
[2019-09-17] MEDS: valproic acid 250mg capsule PO SCH (21:36)
[2019-09-17] MEDS: HYDROcodone/acetaminophen 10/325mg tab PO PRN (21:36)
[2019-09-17 21:37] LABS: TOTAL CELLS COUNTED 100
[2019-09-17 21:39] LABS: ANISOCYTOSIS 1+; PLATELET ESTIMATE INCREASED
[2019-09-17 23:30] VITALS: BP 96/52
[2019-09-18] VITALS (20 sets, daily range): BP systolic 94–128; BP diastolic 52–86
[2019-09-18] MEDS: piperacillin/tazo 3.375gm/50ml 50 ML IV SCH ×3 (00:34→15:36)
[2019-09-18] MEDS: normal saline 1000ml 1,000 ML IV SCH ×3 (04:59→21:01)
[2019-09-18] MEDS: VANCOmycin 1250MG/NS 250ml Bag 250 ML IV SCH ×2 (05:11→17:26)
--- NOTE | 2019-09-18 06:05 | NUR ---
Patient in room ANANDA 340. I have received report from GLENN Lawton and had the opportunity to ask questions and assume patient care.
--- NOTE | 2019-09-18 06:32 | NUR ---
Problems reprioritized. Patient report given, questions answered & plan of care reviewed with Loreta RN.
[2019-09-18] MEDS: valproic acid 250mg capsule PO SCH ×2 (07:56→19:27)
[2019-09-18] MEDS: levoTHYROXINE 125mcg tablet PO SCH (07:57)
[2019-09-18] MEDS: sennosides/docusate sodium tablet PO SCH ×2 (07:57→19:25)
[2019-09-18] MEDS: lactobacillus rhamnosus 10,000 MMU CELLS/CAPSULE PO SCH ×2 (07:57→19:25)
[2019-09-18] MEDS: gabapentin 400mg capsule PO SCH ×2 (07:57→19:25)
[2019-09-18] MEDS: pantoprazole 40mg Tablet.DR PO SCH (07:57)
[2019-09-18] MEDS: topiramate 25mg tablet PO SCH (07:57)
[2019-09-18] MEDS: duloxetine 30mg CAPSULE.DR PO SCH (07:57)
[2019-09-18 08:15] LABS: BASOPHILS # (AUTO) 0.1 X10'3 (0-0.2); BASOPHILS % (AUTO) 0.8 % (0-1); EOSINOPHILS # (AUTO) 0.1 X10'3 (0-0.9); EOSINOPHILS % (AUTO) 1.6 % (0-6); LYMPHOCYTES # (AUTO) 1.7 X10'3 (1.1-4.8); LYMPHOCYTES % (AUTO) 19.6 % (21-51); MEAN CORPUSCULAR HEMOGLOBIN 31.9 PG (27.0-31.0); MEAN CORPUSCULAR VOLUME 96.8 FL (78-98); MEAN PLATELET VOLUME 7.9 FL (7.4-10.4); MONOCYTES # (AUTO) 0.9 X10'3 (0-0.9); MONOCYTES % (AUTO) 11.2 % (2-12); NEUTROPHILS # (AUTO) 5.6 X10'3 (1.8-7.7); NEUTROPHILS % (AUTO) 66.8 % (42-75); PLATELET COUNT 527 X10'3 (140-440); RED BLOOD COUNT 2.09 X10'6 (4.20-5.60); RED CELL DISTRIBUTION WIDTH 16.2 % (11.5-14.5); WHITE BLOOD COUNT 8.4 X10'3 (4.5-11.0)
[2019-09-18 08:17] LABS: HEMATOCRIT 20.2 % (35.0-45.0); HEMOGLOBIN 6.7 g/dl (12.0-16.0)
[2019-09-18 08:32] LABS: ALANINE AMINOTRANSFERASE 30 U/L (12-78); ALBUMIN 1.6 G/DL (3.4-5.0); ALBUMIN/GLOBULIN RATIO 0.3 (1.1-1.5); ALKALINE PHOSPHATASE 99 IU/L (46-116); ANION GAP 9 (8-16); ASPARTATE AMINO TRANSFERASE 29 U/L (10-37); BILIRUBIN,TOTAL 0.4 MG/DL (0.1-1.0); CALCIUM 7.8 MG/DL (8.5-10.1); CHLORIDE 107 MMOL/L (99-107); CREATININE 0.68 MG/DL (0.40-0.90); GLUCOSE 82 MG/DL (70-104); POTASSIUM 3.5 MMOL/L (3.5-5.1); SODIUM 140 MMOL/L (135-145); TOTAL CARBON DIOXIDE 23.9 MMOL/L (24-32); TOTAL PROTEIN 6.2 G/DL (6.4-8.2); eGFR 88 ML/MIN
[2019-09-18 08:41] LABS: BLOOD UREA NITROGEN 7 MG/DL (7-18); BUN/CREATININE RATIO 10.3 (6.6-38.0)
[2019-09-18] MEDS: K and/or MAG REPLACEMENT MC SCH ×2 (09:13→19:05)
[2019-09-18] MEDS: HYDROcodone/acetaminophen 10/325mg tab PO PRN ×2 (14:00→19:41)
--- NOTE | 2019-09-18 18:24 | NUR ---
Patient in room ANANDA 340. I have received report from FRANKIE ELIZABETH and had the opportunity to ask questions and assume patient care.
--- NOTE | 2019-09-18 18:50 | NUR ---
Problems reprioritized. Patient report given, questions answered & plan of care reviewed with GLENN Amaya.
[2019-09-18 19:33] LABS: HEMATOCRIT 26.8 % (35.0-45.0); HEMOGLOBIN 8.8 g/dl (12.0-16.0); MEAN CORPUSCULAR HEMOGLOBIN 30.9 PG (27.0-31.0); MEAN CORPUSCULAR HGB CONC 32.9 g/dL (33.0-36.5); MEAN CORPUSCULAR VOLUME 93.8 FL (78-98); MEAN PLATELET VOLUME 7.8 FL (7.4-10.4); PLATELET COUNT 584 X10'3 (140-440); RED BLOOD COUNT 2.86 X10'6 (4.20-5.60); RED CELL DISTRIBUTION WIDTH 16.8 % (11.5-14.5); WHITE BLOOD COUNT 9.6 X10'3 (4.5-11.0)
[2019-09-18] MEDS: tizanidine 4mg tablet PO SCH (20:56)
[2019-09-18] MEDS: amitriptyline 50mg tablet PO SCH (20:56)
[2019-09-18] MEDS: mirtazapine 15mg tablet PO SCH (20:56)
[2019-09-19] MEDS: piperacillin/tazo 3.375gm/50ml 50 ML IV SCH ×4 (00:21→23:12)
[2019-09-19 00:42] VITALS: BP 118/56
[2019-09-19] MEDS: VANCOmycin 1250MG/NS 250ml Bag 250 ML IV SCH ×2 (05:00→17:05)
[2019-09-19 05:35] LABS: BASOPHILS % (AUTO) 0.5 % (0-1); EOSINOPHILS # (AUTO) 0.2 X10'3 (0-0.9); EOSINOPHILS % (AUTO) 2.1 % (0-6); HEMATOCRIT 25.3 % (35.0-45.0); HEMOGLOBIN 8.4 g/dl (12.0-16.0); LYMPHOCYTES # (AUTO) 1.8 X10'3 (1.1-4.8); LYMPHOCYTES % (AUTO) 19.5 % (21-51); MEAN CORPUSCULAR HEMOGLOBIN 31.1 PG (27.0-31.0); MEAN CORPUSCULAR VOLUME 94.3 FL (78-98); MEAN PLATELET VOLUME 7.8 FL (7.4-10.4); MONOCYTES % (AUTO) 10.9 % (2-12); NEUTROPHILS # (AUTO) 6.1 X10'3 (1.8-7.7); PLATELET COUNT 552 X10'3 (140-440); RED BLOOD COUNT 2.69 X10'6 (4.20-5.60); RED CELL DISTRIBUTION WIDTH 17.4 % (11.5-14.5); WHITE BLOOD COUNT 9.1 X10'3 (4.5-11.0)
[2019-09-19 05:43] LABS: ALANINE AMINOTRANSFERASE 28 U/L (12-78); ALBUMIN 1.6 G/DL (3.4-5.0); ALBUMIN/GLOBULIN RATIO 0.4 (1.1-1.5); ALKALINE PHOSPHATASE 89 IU/L (46-116); ANION GAP 10 (8-16); ASPARTATE AMINO TRANSFERASE 32 U/L (10-37); BILIRUBIN,TOTAL 0.3 MG/DL (0.1-1.0); BLOOD UREA NITROGEN 5 MG/DL (7-18); BUN/CREATININE RATIO 7.7 (6.6-38.0); CALCIUM 7.9 MG/DL (8.5-10.1); CHLORIDE 106 MMOL/L (99-107); CREATININE 0.65 MG/DL (0.40-0.90); GLUCOSE 108 MG/DL (70-104); SODIUM 139 MMOL/L (135-145); TOTAL CARBON DIOXIDE 22.9 MMOL/L (24-32); TOTAL PROTEIN 6.1 G/DL (6.4-8.2); eGFR > 90 ML/MIN
--- NOTE | 2019-09-19 06:23 | NUR ---
Problems reprioritized. Patient report given, questions answered & plan of care reviewed with ANDREZ RN.
--- NOTE | 2019-09-19 06:30 | NUR ---
Patient in room ANANDA 340. I have received report from GLENN Amaya and had the opportunity to ask questions and assume patient care.
[2019-09-19] MEDS: K and/or MAG REPLACEMENT MC SCH ×2 (07:32→20:00)
[2019-09-19 07:55] VITALS: BP 106/63
[2019-09-19] MEDS: duloxetine 30mg CAPSULE.DR PO SCH (07:59)
[2019-09-19] MEDS: sennosides/docusate sodium tablet PO SCH ×2 (08:00→19:25)
[2019-09-19] MEDS: levoTHYROXINE 125mcg tablet PO SCH (08:00)
[2019-09-19] MEDS: valproic acid 250mg capsule PO SCH ×2 (08:00→19:26)
[2019-09-19] MEDS: pantoprazole 40mg Tablet.DR PO SCH (08:00)
[2019-09-19] MEDS: lactobacillus rhamnosus 10,000 MMU CELLS/CAPSULE PO SCH ×2 (08:00→19:26)
[2019-09-19] MEDS: topiramate 25mg tablet PO SCH (08:00)
[2019-09-19] MEDS: gabapentin 400mg capsule PO SCH ×2 (08:00→19:26)
[2019-09-19] MEDS: HYDROcodone/acetaminophen 10/325mg tab PO PRN ×3 (08:01→19:27)
[2019-09-19] MEDS: potassium Cl 20 mEq SR tablet PO PRN ×3 (08:04→15:53)
[2019-09-19] MEDS: potassium Cl 20mEq in NS 1,000 ML IV SCH ×3 (10:30→23:13)
[2019-09-19 11:00] VITALS: BP 120/74
[2019-09-19] MEDS ORDERED: iohexol 300mg/ml 100ml inj. ONE (11:02)
[2019-09-19] MEDS: neomy sulf/polymyx B sulf/HC 10ml otic suspension LEFT EAR SCH ×2 (15:53→23:14)
[2019-09-19] MEDS ORDERED: VANCOMYCIN LEVEL IV ONE (16:30)
--- NOTE | 2019-09-19 18:40 | NUR ---
Problems reprioritized. Patient report given, questions answered & plan of care reviewed with GLENN Medeiros.
--- NOTE | 2019-09-19 18:56 | NUR ---
Patient in room ANANDA 340. I have received report from Loreta ELIZABETH and had the opportunity to ask questions and assume patient care.
[2019-09-19 19:43] VITALS: BP 132/73
[2019-09-19] MEDS: amitriptyline 50mg tablet PO SCH (21:11)
[2019-09-19] MEDS: tizanidine 4mg tablet PO SCH (21:11)
[2019-09-19] MEDS: mirtazapine 15mg tablet PO SCH (21:12)
[2019-09-20] VITALS: BP 94/54
[2019-09-20] MEDS: VANCOmycin 1250MG/NS 250ml Bag 250 ML IV SCH (04:07)
[2019-09-20 05:34] LABS: BASOPHILS # (AUTO) 0.1 X10'3 (0-0.2); MONOCYTES # (AUTO) 1.2 X10'3 (0-0.9); PLATELET COUNT 608 X10'3 (140-440)
[2019-09-20 05:35] LABS: BASOPHILS % (AUTO) 0.7 % (0-1); EOSINOPHILS # (AUTO) 0.3 X10'3 (0-0.9); EOSINOPHILS % (AUTO) 2.6 % (0-6); HEMATOCRIT 25.7 % (35.0-45.0); HEMOGLOBIN 8.4 g/dl (12.0-16.0); LYMPHOCYTES # (AUTO) 2.2 X10'3 (1.1-4.8); LYMPHOCYTES % (AUTO) 22.2 % (21-51); MEAN CORPUSCULAR HEMOGLOBIN 30.7 PG (27.0-31.0); MEAN CORPUSCULAR HGB CONC 32.7 g/dL (33.0-36.5); MEAN CORPUSCULAR VOLUME 93.9 FL (78-98); MEAN PLATELET VOLUME 7.6 FL (7.4-10.4); MONOCYTES % (AUTO) 12.5 % (2-12); RED BLOOD COUNT 2.74 X10'6 (4.20-5.60); RED CELL DISTRIBUTION WIDTH 17.2 % (11.5-14.5); WHITE BLOOD COUNT 9.7 X10'3 (4.5-11.0)
[2019-09-20 05:46] LABS: ALANINE AMINOTRANSFERASE 30 U/L (12-78); ALBUMIN 1.6 G/DL (3.4-5.0); ALBUMIN/GLOBULIN RATIO 0.3 (1.1-1.5); ALKALINE PHOSPHATASE 93 IU/L (46-116); ANION GAP 8 (8-16); ASPARTATE AMINO TRANSFERASE 39 U/L (10-37); BILIRUBIN,TOTAL 0.3 MG/DL (0.1-1.0); BLOOD UREA NITROGEN 3 MG/DL (7-18); BUN/CREATININE RATIO 3.3 (6.6-38.0); CALCIUM 8.3 MG/DL (8.5-10.1); CHLORIDE 111 MMOL/L (99-107); CREATININE 0.91 MG/DL (0.40-0.90); GLUCOSE 96 MG/DL (70-104); MAGNESIUM 2.2 MG/DL (1.5-2.4); SODIUM 143 MMOL/L (135-145); TOTAL CARBON DIOXIDE 23.7 MMOL/L (24-32); TOTAL PROTEIN 6.3 G/DL (6.4-8.2); eGFR 63 ML/MIN
--- NOTE | 2019-09-20 06:00 | NUR ---
Patient in room ANANDA 340. I have received report from GLENN Medeiros and had the opportunity to ask questions and assume patient care.
--- NOTE | 2019-09-20 06:07 | NUR ---
Problems reprioritized. Patient report given, questions answered & plan of care reviewed with Ashlyn ELIZABETH.
[2019-09-20] MEDS: piperacillin/tazo 3.375gm/50ml 50 ML IV SCH (07:55)
[2019-09-20] MEDS: HYDROcodone/acetaminophen 10/325mg tab PO PRN ×4 (07:55→22:48)
[2019-09-20] MEDS: levoTHYROXINE 125mcg tablet PO SCH (07:55)
[2019-09-20] MEDS: lactobacillus rhamnosus 10,000 MMU CELLS/CAPSULE PO SCH ×2 (07:56→20:00)
[2019-09-20] MEDS: pantoprazole 40mg Tablet.DR PO SCH (07:56)
[2019-09-20] MEDS: duloxetine 30mg CAPSULE.DR PO SCH (07:56)
[2019-09-20] MEDS: valproic acid 250mg capsule PO SCH ×2 (07:56→20:00)
[2019-09-20] MEDS: gabapentin 400mg capsule PO SCH ×2 (07:56→20:00)
[2019-09-20] MEDS: topiramate 25mg tablet PO SCH (07:56)
[2019-09-20] MEDS: neomy sulf/polymyx B sulf/HC 10ml otic suspension LEFT EAR SCH ×2 (07:57→16:13)
[2019-09-20 08:00] VITALS: BP 114/65
[2019-09-20] MEDS: K and/or MAG REPLACEMENT MC SCH ×2 (08:00→20:00)
[2019-09-20] MEDS: sennosides/docusate sodium tablet PO SCH (08:00)
[2019-09-20 11:00] VITALS: BP 113/58
[2019-09-20] MEDS: potassium Cl 20mEq in NS 1,000 ML IV SCH (11:58)
--- NOTE | 2019-09-20 18:30 | NUR ---
Problems reprioritized. Patient report given, questions answered & plan of care reviewed with GLENN Medeiros.
--- NOTE | 2019-09-20 18:58 | NUR ---
Patient in room ANANDA 340. I have received report from Ashlyn ELIZABETH and had the opportunity to ask questions and assume patient care.
[2019-09-20 20:00] VITALS: BP 136/85
[2019-09-20] MEDS: amitriptyline 50mg tablet PO SCH (20:00)
[2019-09-20] MEDS: mirtazapine 15mg tablet PO SCH (20:00)
[2019-09-20] MEDS: tizanidine 4mg tablet PO SCH (20:00)
[2019-09-21] VITALS: BP 114/70
[2019-09-21] MEDS: neomy sulf/polymyx B sulf/HC 10ml otic suspension LEFT EAR SCH ×4 (00:53→23:55)
[2019-09-21] MEDS: potassium Cl 20mEq in NS 1,000 ML IV SCH (01:39)
[2019-09-21 06:16] LABS: BASOPHILS # (AUTO) 0.1 X10'3 (0-0.2); EOSINOPHILS # (AUTO) 0.3 X10'3 (0-0.9); LYMPHOCYTES # (AUTO) 2.7 X10'3 (1.1-4.8); MEAN CORPUSCULAR HGB CONC 33.4 g/dL (33.0-36.5); MEAN PLATELET VOLUME 7.7 FL (7.4-10.4); MONOCYTES # (AUTO) 0.9 X10'3 (0-0.9)
[2019-09-21 06:20] LABS: EOSINOPHILS % (AUTO) 2.9 % (0-6); HEMATOCRIT 27.7 % (35.0-45.0); HEMOGLOBIN 9.2 g/dl (12.0-16.0); LYMPHOCYTES % (AUTO) 30.5 % (21-51); MEAN CORPUSCULAR HEMOGLOBIN 31.6 PG (27.0-31.0); MEAN CORPUSCULAR VOLUME 94.7 FL (78-98); MONOCYTES % (AUTO) 10.4 % (2-12); NEUTROPHILS # (AUTO) 4.9 X10'3 (1.8-7.7); NEUTROPHILS % (AUTO) 55.2 % (42-75); PLATELET COUNT 619 X10'3 (140-440); RED BLOOD COUNT 2.92 X10'6 (4.20-5.60); RED CELL DISTRIBUTION WIDTH 17.5 % (11.5-14.5); WHITE BLOOD COUNT 8.9 X10'3 (4.5-11.0)
[2019-09-21 06:32] LABS: ALANINE AMINOTRANSFERASE 28 U/L (12-78); ALBUMIN 1.8 G/DL (3.4-5.0); ALBUMIN/GLOBULIN RATIO 0.4 (1.1-1.5); ALKALINE PHOSPHATASE 96 IU/L (46-116); ANION GAP 10 (8-16); ASPARTATE AMINO TRANSFERASE 33 U/L (10-37); BILIRUBIN,TOTAL 0.3 MG/DL (0.1-1.0); BLOOD UREA NITROGEN 3 MG/DL (7-18); BUN/CREATININE RATIO 3.5 (6.6-38.0); CALCIUM 8.5 MG/DL (8.5-10.1); CHLORIDE 109 MMOL/L (99-107); CREATININE 0.85 MG/DL (0.40-0.90); GLUCOSE 91 MG/DL (70-104); POTASSIUM 3.6 MMOL/L (3.5-5.1); SODIUM 143 MMOL/L (135-145); TOTAL PROTEIN 6.9 G/DL (6.4-8.2); eGFR 68 ML/MIN
--- NOTE | 2019-09-21 06:35 | NUR ---
Problems reprioritized. Patient report given, questions answered & plan of care reviewed with Allyson RN.
--- NOTE | 2019-09-21 06:35 | NUR ---
Patient in room ANANDA 340. I have received report from GLENN Medeiros and had the opportunity to ask questions and assume patient care.
[2019-09-21 07:00] VITALS: BP 114/65
[2019-09-21] MEDS: valproic acid 250mg capsule PO SCH ×2 (07:26→19:34)
[2019-09-21] MEDS: topiramate 25mg tablet PO SCH (07:26)
[2019-09-21] MEDS: lactobacillus rhamnosus 10,000 MMU CELLS/CAPSULE PO SCH ×2 (07:26→19:33)
[2019-09-21] MEDS: gabapentin 400mg capsule PO SCH ×2 (07:26→19:32)
[2019-09-21] MEDS: duloxetine 30mg CAPSULE.DR PO SCH (07:26)
[2019-09-21] MEDS: pantoprazole 40mg Tablet.DR PO SCH (07:26)
[2019-09-21] MEDS: levoTHYROXINE 125mcg tablet PO SCH (07:30)
[2019-09-21] MEDS: K and/or MAG REPLACEMENT MC SCH ×2 (08:00→19:38)
[2019-09-21 09:22] LABS: NUCLEATED RED BLOOD CELLS 3 /100WBC (0-0); PLATELET ESTIMATE INCREASED; TOTAL CELLS COUNTED 100
[2019-09-21 09:26] LABS: ANISOCYTOSIS 1+; POLYCHROMASIA FEW
--- NOTE | 2019-09-21 10:51 | NUR ---
Initial: Pt recently admitted and s/p recent open cholecystectomy 09/07 d/t severe cholecystitis, admit with abscess of gallbladder fossa this visit. Pt continues with c/o abdominal pain, MARLON drain in place. Blood cultures from Janny show MRSA sepsis, f/u blood cultures negative to date per MD notes. Pt on a regular diet averaging 75% PO intake meeting nutrient needs. LBM 8/3 documented as large. No nutrition intervention warranted at this time. Will continue to follow. Recommendations: 1) Continue regular diet 2) Bowel care PRN 3) Scaled weights per rx Addendum: 09/21/19 at [address] Amended: Links added.
[2019-09-21 11:00] VITALS: BP 143/83
[2019-09-21] MEDS: HYDROcodone/acetaminophen 10/325mg tab PO PRN ×3 (13:00→22:09)
--- NOTE | 2019-09-21 18:08 | NUR ---
Problems reprioritized. Patient report given, questions answered & plan of care reviewed with GLENN THOMPSON.
--- NOTE | 2019-09-21 18:10 | NUR ---
Patient in room ANANDA 340. I have received report from GLENN Valadez and had the opportunity to ask questions and assume patient care. Pt sitting up in bed eating dinner, no complaints. Addendum: 09/21/19 at 1840 by Mary Ruffin RN Amended: Links added.
[2019-09-21 19:30] VITALS: BP 140/83
[2019-09-21] MEDS: mirtazapine 15mg tablet PO SCH (19:33)
[2019-09-21] MEDS: tizanidine 4mg tablet PO SCH (19:33)
[2019-09-21] MEDS: amitriptyline 50mg tablet PO SCH (19:34)
--- NOTE | 2019-09-21 22:15 | NUR ---
warm compress given for left ear and and jaw Addendum: 09/21/19 at 2215 by Mary Ruffin RN Amended: Links added.
[2019-09-22] VITALS: BP 128/74
[2019-09-22] MEDS ORDERED: VANCOMYCIN LEVEL IV ONE (04:30)
[2019-09-22] MEDS: HYDROcodone/acetaminophen 10/325mg tab PO PRN ×3 (05:27→15:58)
[2019-09-22 06:02] LABS: BASOPHILS # (AUTO) 0.1 X10'3 (0-0.2); EOSINOPHILS # (AUTO) 0.2 X10'3 (0-0.9); HEMATOCRIT 26.2 % (35.0-45.0); HEMOGLOBIN 8.7 g/dl (12.0-16.0); LYMPHOCYTES # (AUTO) 2.6 X10'3 (1.1-4.8); LYMPHOCYTES % (AUTO) 31.9 % (21-51); MEAN CORPUSCULAR HEMOGLOBIN 31.3 PG (27.0-31.0); MEAN CORPUSCULAR HGB CONC 33.2 g/dL (33.0-36.5); MEAN CORPUSCULAR VOLUME 94.4 FL (78-98); MEAN PLATELET VOLUME 7.4 FL (7.4-10.4); MONOCYTES % (AUTO) 11.8 % (2-12); NEUTROPHILS # (AUTO) 4.3 X10'3 (1.8-7.7); NEUTROPHILS % (AUTO) 52.3 % (42-75); PLATELET COUNT 579 X10'3 (140-440); RED BLOOD COUNT 2.78 X10'6 (4.20-5.60); RED CELL DISTRIBUTION WIDTH 17.3 % (11.5-14.5); WHITE BLOOD COUNT 8.2 X10'3 (4.5-11.0)
[2019-09-22 06:09] LABS: ALANINE AMINOTRANSFERASE 25 U/L (12-78); ALBUMIN 1.8 G/DL (3.4-5.0); ALBUMIN/GLOBULIN RATIO 0.4 (1.1-1.5); ALKALINE PHOSPHATASE 88 IU/L (46-116); ANION GAP 8 (8-16); ASPARTATE AMINO TRANSFERASE 31 U/L (10-37); BILIRUBIN,TOTAL 0.2 MG/DL (0.1-1.0); BLOOD UREA NITROGEN 4 MG/DL (7-18); BUN/CREATININE RATIO 4.4 (6.6-38.0); CALCIUM 8.6 MG/DL (8.5-10.1); CHLORIDE 107 MMOL/L (99-107); GLUCOSE 98 MG/DL (70-104); POTASSIUM 3.4 MMOL/L (3.5-5.1); SODIUM 141 MMOL/L (135-145); TOTAL CARBON DIOXIDE 25.6 MMOL/L (24-32); TOTAL PROTEIN 6.5 G/DL (6.4-8.2); eGFR 64 ML/MIN
[2019-09-22 06:10] LABS: MAGNESIUM 2.1 MG/DL (1.5-2.4)
--- NOTE | 2019-09-22 06:14 | NUR ---
Patient in room ANANDA 340. I have received report from GLENN Weathers and had the opportunity to ask questions and assume patient care.
--- NOTE | 2019-09-22 06:14 | NUR ---
Problems reprioritized. Patient report given, questions answered & plan of care reviewed with GLENN Valadez[]. Addendum: 09/22/19 at 0624 by Mary Ruffin RN Amended: Links added.
[2019-09-22 06:18] LABS: VANCOMYCIN,TROUGH 27.8 UG/ML (6.0-14.0)
[2019-09-22 07:13] LABS: TOTAL CELLS COUNTED 100
[2019-09-22 07:14] LABS: PLATELET ESTIMATE INCREASED
[2019-09-22 07:15] LABS: POLYCHROMASIA 1+
[2019-09-22 07:16] LABS: LARGE PLATELETS FEW; STOMATOCYTES 1+
[2019-09-22 07:17] LABS: ANISOCYTOSIS 1+
[2019-09-22] MEDS: duloxetine 30mg CAPSULE.DR PO SCH (07:25)
[2019-09-22] MEDS: neomy sulf/polymyx B sulf/HC 10ml otic suspension LEFT EAR SCH ×2 (07:25→15:55)
[2019-09-22] MEDS: levoTHYROXINE 125mcg tablet PO SCH (07:25)
[2019-09-22] MEDS: pantoprazole 40mg Tablet.DR PO SCH (07:25)
[2019-09-22] MEDS: gabapentin 400mg capsule PO SCH (07:25)
[2019-09-22] MEDS: lactobacillus rhamnosus 10,000 MMU CELLS/CAPSULE PO SCH (07:25)
[2019-09-22] MEDS: valproic acid 250mg capsule PO SCH (07:25)
[2019-09-22] MEDS: topiramate 25mg tablet PO SCH (07:25)
[2019-09-22 08:00] VITALS: BP 135/73
[2019-09-22] MEDS ORDERED: vancomycin/NS 1 GM ADD-VANTAGE 250 ML IV SCH (08:00)
[2019-09-22] MEDS: K and/or MAG REPLACEMENT MC SCH (08:00)
[2019-09-22] MEDS ORDERED: potassium Cl 20 mEq SR tablet PO STA (10:58)
[2019-09-22 12:15] VITALS: BP 145/73
[2019-09-22] MEDS ORDERED: morphine 10mg/ml inj. IV PRN (14:23)
--- NOTE | 2019-09-22 15:50 | NUR ---
Report called to MARQUISE Schaeffer at [facility]. all questions answered. Patient waste picker time is approximately at 1600.
[2019-09-24] MEDS ORDERED: VANCOMYCIN LEVEL IV ONE (07:30)
== END 2019-09-22 16:27 | DRG 720 ==
LOC: ER 16:45 → ED HOLD 18:56 → SUR 3N 19:44
PROVIDERS: ADMIT Family Medicine; ATTEND Family Medicine
PROC: 30233N1 Transfusion of Nonautologous Red Blood Cells into Peripheral Vein, Percutaneous Approach (ICD-10-PCS; principal; 2019-09-18)
PROC: 0F9430Z Drainage of Gallbladder with Drainage Device, Percutaneous Approach (ICD-10-PCS; 2019-09-18)
DX: A41.02 Sepsis due to Methicillin resistant Staphylococcus aureus (principal); B95.1 Streptococcus, group B, as the cause of diseases classified elsewhere; D64.9 Anemia, unspecified; E03.9 Hypothyroidism, unspecified; E46 Unspecified protein-calorie malnutrition; E87.1 Hypo-osmolality and hyponatremia; E87.6 Hypokalemia; F32.9 Major depressive disorder, single episode, unspecified; I10 Essential (primary) hypertension; K11.20 Sialoadenitis, unspecified; G43.909 Migraine, unspecified, not intractable, without status migrainosus; G89.29 Other chronic pain; K65.1 Peritoneal abscess; L03.311 Cellulitis of abdominal wall; Z79.890 Hormone replacement therapy; Z80.8 Family history of malignant neoplasm of other organs or systems; Z86.14 Personal history of Methicillin resistant Staphylococcus aureus infection; Z88.1 Allergy status to other antibiotic agents; Z90.711 Acquired absence of uterus with remaining cervical stump; Z68.32 Body mass index [BMI] 32.0-32.9, adult; Z88.8 Allergy status to other drugs, medicaments and biological substances; Z79.899 Other long term (current) drug therapy
CPT/HCPCS: 36415; 36430; 49406; 70486; 71045; 74177; 76937; 80053; 80202; 81003; 83605; 83735; 84145; 85025; 85027; 86885; 86900; 86901; 86920; 87040; 87070; 87077; 87081; 87186; 93005; 93306; 93971; 99152; 99153; 99285; G0378; J2270; J2405; J2543; J3370; J3480; J7030; P9016; Q9967

== ENCOUNTER 2019-09-30 08:48 | Outpatient (CLI) | payer MEDICAID ==
[~2019-09-30 08:48] MED LIST changes: +BACI1CAP6 PO; -CHOL10002 PO; +SENN1TAB82 PO
[2019-09-30] MEDS ORDERED: iohexol 300mg/ml 100ml inj. ONE (09:00)
== END 2019-09-30 23:59 | disposition home or self-care (01) ==
LOC: 64 CT 08:48
PROVIDERS: ATTEND Internal Medicine
DX: K76.0 Fatty (change of) liver, not elsewhere classified (principal); K59.09 Other constipation; M85.88 Other specified disorders of bone density and structure, other site; M43.8X2 Other specified deforming dorsopathies, cervical region; I70.0 Atherosclerosis of aorta; I87.8 Other specified disorders of veins; Z90.49 Acquired absence of other specified parts of digestive tract; Z90.710 Acquired absence of both cervix and uterus
CPT/HCPCS: 74177; Q9967

== ENCOUNTER 2019-10-13 12:40 | Outpatient (CLI) | payer MEDICAID | END 2019-10-14 14:26 | disposition home or self-care (01) | LOC: WOUND CARE 12:40 → EDSTATUS 12:40 → WOUND CARE 10-14 14:26 | PROVIDERS: ATTEND Nurse Practitioner | DX: T81.89XA Other complications of procedures, not elsewhere classified, initial encounter (principal); L98.492 Non-pressure chronic ulcer of skin of other sites with fat layer exposed; M19.90 Unspecified osteoarthritis, unspecified site; I10 Essential (primary) hypertension; E03.9 Hypothyroidism, unspecified; G47.00 Insomnia, unspecified; G43.909 Migraine, unspecified, not intractable, without status migrainosus; G89.29 Other chronic pain; E87.1 Hypo-osmolality and hyponatremia; E87.6 Hypokalemia; K76.0 Fatty (change of) liver, not elsewhere classified; E43 Unspecified severe protein-calorie malnutrition; F32.9 Major depressive disorder, single episode, unspecified; Z90.710 Acquired absence of both cervix and uterus; Z90.49 Acquired absence of other specified parts of digestive tract; Z98.1 Arthrodesis status; Z68.32 Body mass index [BMI] 32.0-32.9, adult; Z79.890 Hormone replacement therapy; Z79.899 Other long term (current) drug therapy; Z98.890 Other specified postprocedural states; Z86.14 Personal history of Methicillin resistant Staphylococcus aureus infection; Y83.8 Other surgical procedures as the cause of abnormal reaction of the patient, or of later complication, without mention of misadventure at the time of the procedure; Y92.238 Other place in hospital as the place of occurrence of the external cause | CPT/HCPCS: G0463 ==

== ENCOUNTER 2019-10-26 12:10 | Day surgery (SDC) | payer MEDICAID ==
[2019-10-26] MEDS ORDERED: LIDOcaine 2% 5ml jelly ONE (12:32)
== END 2019-10-26 13:19 | disposition home or self-care (01) ==
LOC: WOUND CARE 12:10
PROVIDERS: ATTEND Nurse Practitioner
DX: T81.89XD Other complications of procedures, not elsewhere classified, subsequent encounter (principal); L98.491 Non-pressure chronic ulcer of skin of other sites limited to breakdown of skin; I10 Essential (primary) hypertension; I70.0 Atherosclerosis of aorta; K76.0 Fatty (change of) liver, not elsewhere classified; M85.9 Disorder of bone density and structure, unspecified; I87.8 Other specified disorders of veins; D64.9 Anemia, unspecified; E46 Unspecified protein-calorie malnutrition; E03.9 Hypothyroidism, unspecified; G43.909 Migraine, unspecified, not intractable, without status migrainosus; G89.29 Other chronic pain; M19.90 Unspecified osteoarthritis, unspecified site; G47.00 Insomnia, unspecified; F32.9 Major depressive disorder, single episode, unspecified; Z79.890 Hormone replacement therapy; Z68.32 Body mass index [BMI] 32.0-32.9, adult; Z98.890 Other specified postprocedural states; Z98.1 Arthrodesis status; Z86.14 Personal history of Methicillin resistant Staphylococcus aureus infection; Z90.710 Acquired absence of both cervix and uterus; Z90.49 Acquired absence of other specified parts of digestive tract; Z79.899 Other long term (current) drug therapy; Y83.8 Other surgical procedures as the cause of abnormal reaction of the patient, or of later complication, without mention of misadventure at the time of the procedure
CPT/HCPCS: 97597

== ENCOUNTER 2019-10-28 14:36 | Emergency (ER) | payer MEDICAID ==
[~2019-10-28] VITALS: Ht 162.6 cm; Wt 81.8 kg
[2019-10-28 15:49] VITALS: BP 113/67
== END 2019-10-28 15:51 | disposition home or self-care (01) ==
LOC: ER 14:36
DX: S39.011A Strain of muscle, fascia and tendon of abdomen, initial encounter (principal); G43.909 Migraine, unspecified, not intractable, without status migrainosus; I10 Essential (primary) hypertension; G89.29 Other chronic pain; Z98.890 Other specified postprocedural states; Z90.710 Acquired absence of both cervix and uterus; Z88.8 Allergy status to other drugs, medicaments and biological substances; Z88.5 Allergy status to narcotic agent; Z79.899 Other long term (current) drug therapy; X58.XXXA Exposure to other specified factors, initial encounter; Y93.89 Activity, other specified; Y92.89 Other specified places as the place of occurrence of the external cause; Y99.8 Other external cause status
CPT/HCPCS: 99281

== ENCOUNTER 2019-11-08 08:37 | Day surgery (SDC) | payer MEDICAID | END 2019-11-08 09:35 | disposition home or self-care (01) | LOC: WOUND CARE 08:37 | PROVIDERS: ATTEND Nurse Practitioner Family | DX: T81.89XD Other complications of procedures, not elsewhere classified, subsequent encounter (principal); L98.492 Non-pressure chronic ulcer of skin of other sites with fat layer exposed; M19.90 Unspecified osteoarthritis, unspecified site; I10 Essential (primary) hypertension; E03.9 Hypothyroidism, unspecified; G47.00 Insomnia, unspecified; G43.909 Migraine, unspecified, not intractable, without status migrainosus; G89.29 Other chronic pain; E87.1 Hypo-osmolality and hyponatremia; E87.6 Hypokalemia; K76.0 Fatty (change of) liver, not elsewhere classified; E43 Unspecified severe protein-calorie malnutrition; F32.9 Major depressive disorder, single episode, unspecified; Z90.710 Acquired absence of both cervix and uterus; Z90.49 Acquired absence of other specified parts of digestive tract; Z98.1 Arthrodesis status; Z68.32 Body mass index [BMI] 32.0-32.9, adult; Z79.890 Hormone replacement therapy; Z79.899 Other long term (current) drug therapy; Z98.890 Other specified postprocedural states; Z86.14 Personal history of Methicillin resistant Staphylococcus aureus infection; Y83.8 Other surgical procedures as the cause of abnormal reaction of the patient, or of later complication, without mention of misadventure at the time of the procedure | CPT/HCPCS: 97597 ==

== ENCOUNTER 2019-11-15 11:38 | Outpatient (CLI) | payer MEDICAID | END 2019-11-15 12:24 | disposition home or self-care (01) | LOC: WOUND CARE 11:38 → EDSTATUS 11:40 → WOUND CARE 12:24 | PROVIDERS: ATTEND Nurse Practitioner Family | DX: T81.89XD Other complications of procedures, not elsewhere classified, subsequent encounter (principal); L98.492 Non-pressure chronic ulcer of skin of other sites with fat layer exposed; M19.90 Unspecified osteoarthritis, unspecified site; I10 Essential (primary) hypertension; E03.9 Hypothyroidism, unspecified; G47.00 Insomnia, unspecified; G43.909 Migraine, unspecified, not intractable, without status migrainosus; G89.29 Other chronic pain; E87.1 Hypo-osmolality and hyponatremia; E87.6 Hypokalemia; K76.0 Fatty (change of) liver, not elsewhere classified; E43 Unspecified severe protein-calorie malnutrition; F32.9 Major depressive disorder, single episode, unspecified; Z90.710 Acquired absence of both cervix and uterus; Z90.49 Acquired absence of other specified parts of digestive tract; Z98.1 Arthrodesis status; Z68.32 Body mass index [BMI] 32.0-32.9, adult; Z79.890 Hormone replacement therapy; Z79.899 Other long term (current) drug therapy; Z98.890 Other specified postprocedural states; Z86.14 Personal history of Methicillin resistant Staphylococcus aureus infection; Y83.8 Other surgical procedures as the cause of abnormal reaction of the patient, or of later complication, without mention of misadventure at the time of the procedure | CPT/HCPCS: G0463 ==

== ENCOUNTER 2019-11-29 10:43 | Outpatient (CLI) | payer MEDICAID | END 2019-11-29 12:15 | disposition home or self-care (01) | LOC: WOUND CARE 10:43 | PROVIDERS: ATTEND Nurse Practitioner Family | DX: T81.89XD Other complications of procedures, not elsewhere classified, subsequent encounter (principal); L98.492 Non-pressure chronic ulcer of skin of other sites with fat layer exposed; M19.90 Unspecified osteoarthritis, unspecified site; I10 Essential (primary) hypertension; E03.9 Hypothyroidism, unspecified; G47.00 Insomnia, unspecified; G43.909 Migraine, unspecified, not intractable, without status migrainosus; G89.29 Other chronic pain; E87.1 Hypo-osmolality and hyponatremia; E87.6 Hypokalemia; K76.0 Fatty (change of) liver, not elsewhere classified; E43 Unspecified severe protein-calorie malnutrition; F32.9 Major depressive disorder, single episode, unspecified; Z90.710 Acquired absence of both cervix and uterus; Z90.49 Acquired absence of other specified parts of digestive tract; Z98.1 Arthrodesis status; Z68.32 Body mass index [BMI] 32.0-32.9, adult; Z79.890 Hormone replacement therapy; Z79.899 Other long term (current) drug therapy; Z98.890 Other specified postprocedural states; Z86.14 Personal history of Methicillin resistant Staphylococcus aureus infection; Y83.8 Other surgical procedures as the cause of abnormal reaction of the patient, or of later complication, without mention of misadventure at the time of the procedure | CPT/HCPCS: G0463 ==

== ENCOUNTER 2019-12-24 09:53 | Emergency (ER) | payer MEDICAID ==
[~2019-12-24] VITALS: Ht 162.6 cm; Wt 77.7 kg
[2019-12-24] MEDS ORDERED: SUMAtriptan succ. 6 MG/0.5ml vial SQ ONE (10:30)
[2019-12-24] MEDS ORDERED: tizanidine 4mg tablet PO ONE (10:30)
[2019-12-24] MEDS ORDERED: ketorolac trometh inj. 60 MG/2 ML VIAL IM ONE (11:30)
[2019-12-24 12:07] VITALS: BP 109/61
== END 2019-12-24 12:10 | disposition home or self-care (01) ==
LOC: ER 09:54
DX: M62.830 Muscle spasm of back (principal); M54.81 Occipital neuralgia; G43.909 Migraine, unspecified, not intractable, without status migrainosus; E07.89 Other specified disorders of thyroid; G89.29 Other chronic pain; I10 Essential (primary) hypertension; Z98.890 Other specified postprocedural states; Z79.899 Other long term (current) drug therapy; Z88.5 Allergy status to narcotic agent; Z88.8 Allergy status to other drugs, medicaments and biological substances
CPT/HCPCS: 96372; 99284; J1885; J3030

== ENCOUNTER 2019-12-29 11:49 | Emergency (ER) | payer MEDICAID ==
[~2019-12-29] VITALS: Ht 162.6 cm; Wt 78.0 kg
[2019-12-29] MEDS ORDERED: ketorolac tromethamine 15mg/ml inj. IV ONE (13:35)
[2019-12-29] MEDS ORDERED: proCHLORperazine 10 MG/2 ml inj IV ONE (13:35)
[2019-12-29] MEDS ORDERED: normal saline 1000ml 1,000 ML IV ONE (13:35)
[2019-12-29 14:48] VITALS: BP 141/79
== END 2019-12-29 14:50 | disposition home or self-care (01) ==
LOC: ER 11:49
DX: G43.909 Migraine, unspecified, not intractable, without status migrainosus (principal); R11.0 Nausea; I10 Essential (primary) hypertension; G89.29 Other chronic pain; Z90.710 Acquired absence of both cervix and uterus; Z98.890 Other specified postprocedural states; Z88.1 Allergy status to other antibiotic agents; Z88.8 Allergy status to other drugs, medicaments and biological substances; Z79.899 Other long term (current) drug therapy
CPT/HCPCS: 96361; 96374; 96375; 99284; J0780; J1885; J7030

== ENCOUNTER 2020-03-15 16:11 | Emergency (ER) | payer MEDICAID ==
[~2020-03-15] VITALS: Ht 162.6 cm; Wt 84.1 kg
[2020-03-15] MEDS ORDERED: normal saline 1000ml 1,000 ML IV ONE ×2 (18:20→19:55)
[2020-03-15] MEDS ORDERED: ketorolac tromethamine 15mg/ml inj. IV ONE (18:20)
[2020-03-15] MEDS ORDERED: proCHLORperazine 10 MG/2 ml inj IM ONE (18:20)
[2020-03-15] MEDS ORDERED: LORazepam 2 mg/ml vial IV ONE (19:55)
[2020-03-15 21:34] VITALS: BP 143/67
== END 2020-03-15 21:37 | disposition home or self-care (01) ==
LOC: ER 16:12
DX: G43.909 Migraine, unspecified, not intractable, without status migrainosus (principal); I10 Essential (primary) hypertension; G89.29 Other chronic pain; Z90.710 Acquired absence of both cervix and uterus; Z88.8 Allergy status to other drugs, medicaments and biological substances; Z79.899 Other long term (current) drug therapy
CPT/HCPCS: 96361; 96372; 96374; 96375; 99285; J0780; J1885; J2060; J7030

== ENCOUNTER 2020-04-04 18:24 | Emergency (ER) | payer MEDICAID ==
[~2020-04-04] VITALS: Ht 162.6 cm; Wt 86.4 kg
[2020-04-04] MEDS ORDERED: ketorolac trometh. 30mg/ml inj. IV ONE (20:15)
[2020-04-04] MEDS ORDERED: normal saline 1000ml 1,000 ML IV ONE (20:15)
[2020-04-04] MEDS ORDERED: SUMAtriptan succ. 6 MG/0.5ml vial SQ ONE (20:15)
[2020-04-04] MEDS ORDERED: acetaminophen 325mg tablet PO ONE (20:15)
[2020-04-04] MEDS ORDERED: proCHLORperazine 10 MG/2 ml inj IV ONE (20:15)
[2020-04-04] MEDS ORDERED: aspirin 325mg tablet PO ONE (20:15)
--- NOTE | 2020-04-04 20:28 | NUR ---
PT P TO BR FROM [facility]. AMBULATING WITH SLOW STEADY GAIT.
[2020-04-04] MEDS ORDERED: haloperidol lactate 5mg/ml inj IM ONE (21:20)
[2020-04-04] MEDS ORDERED: magnesium 2GM in 50ml NS 50 ML IV ONE (21:20)
[2020-04-04] MEDS ORDERED: dexamethasone 4mg/ml inj IV ONE (21:35)
[2020-04-04 22:56] VITALS: BP 126/72
== END 2020-04-04 22:59 | disposition home or self-care (01) ==
LOC: ER 18:24
DX: G43.909 Migraine, unspecified, not intractable, without status migrainosus (principal); R42 Dizziness and giddiness; Z79.899 Other long term (current) drug therapy; Z88.8 Allergy status to other drugs, medicaments and biological substances; I10 Essential (primary) hypertension; G89.29 Other chronic pain; Z90.710 Acquired absence of both cervix and uterus
CPT/HCPCS: 96361; 96365; 96372; 96375; 99284; J0780; J1100; J1630; J1885; J3475; J7030; J3030

== ENCOUNTER 2020-04-16 07:22 | Emergency (ER) | payer MEDICAID ==
[~2020-04-16] VITALS: Ht 162.6 cm; Wt 87.0 kg
[2020-04-16] MEDS ORDERED: HYDROcodone/acetaminophen 10/325mg tab PO ONE (07:55)
--- NOTE | 2020-04-16 08:35 | NUR ---
vascular at bedside
[2020-04-16] MEDS ORDERED: ketorolac trometh inj. 60 MG/2 ML VIAL IM ONE (09:00)
[2020-04-16] MEDS ORDERED: RIVA15TA PO (09:03)
[2020-04-16] MEDS ORDERED: RIVA10TA PO (09:03)
[2020-04-16 09:20] VITALS: BP 110/70
== END 2020-04-16 09:22 | disposition home or self-care (01) ==
LOC: ER 07:23
DX: I80.9 Phlebitis and thrombophlebitis of unspecified site (principal); M79.651 Pain in right thigh; M25.571 Pain in right ankle and joints of right foot; G43.909 Migraine, unspecified, not intractable, without status migrainosus; I10 Essential (primary) hypertension; G89.29 Other chronic pain; Z90.710 Acquired absence of both cervix and uterus; Z98.890 Other specified postprocedural states; Z88.1 Allergy status to other antibiotic agents; Z88.8 Allergy status to other drugs, medicaments and biological substances; Z79.899 Other long term (current) drug therapy
CPT/HCPCS: 93971; 96372; 99284; J1885

== ENCOUNTER 2020-05-20 20:49 | Emergency (ER) | payer MEDICAID ==
[~2020-05-20] VITALS: Ht 162.6 cm; Wt 83.9 kg
[~2020-05-20 20:49] MED LIST changes: +RIVA15TA PO
[2020-05-20 22:11] VITALS: BP 140/77
== END 2020-05-20 22:08 | disposition home or self-care (01) ==
LOC: ER 20:50
DX: S83.8X1A Sprain of other specified parts of right knee, initial encounter (principal); G43.909 Migraine, unspecified, not intractable, without status migrainosus; I10 Essential (primary) hypertension; G89.29 Other chronic pain; Z90.710 Acquired absence of both cervix and uterus; Z98.890 Other specified postprocedural states; Z88.8 Allergy status to other drugs, medicaments and biological substances; Z88.1 Allergy status to other antibiotic agents; Z79.899 Other long term (current) drug therapy; W22.8XXA Striking against or struck by other objects, initial encounter; Y93.89 Activity, other specified; Y92.89 Other specified places as the place of occurrence of the external cause; Y99.8 Other external cause status
CPT/HCPCS: 73564; 99283

== ENCOUNTER 2020-07-08 11:05 | Emergency (ER) | payer MEDICAID ==
[~2020-07-08] VITALS: Ht 162.6 cm; Wt 88.2 kg
[2020-07-08] MEDS ORDERED: proCHLORperazine 10 MG/2 ml inj IV ONE (13:25)
[2020-07-08] MEDS ORDERED: normal saline 1000ml 1,000 ML IV ONE (13:25)
[2020-07-08] MEDS ORDERED: ketorolac tromethamine 15mg/ml inj. IV ONE (13:55)
[2020-07-08] MEDS ORDERED: SUMAtriptan succ. 6 MG/0.5ml vial SQ ONE (16:00)
[2020-07-08] MEDS ORDERED: diazepam inj 5 MG/ML inj. IV ONE (16:00)
[2020-07-08] MEDS ORDERED: dexamethasone 4mg/ml inj IV SCH (16:00)
[2020-07-08 17:04] VITALS: BP 120/78
== END 2020-07-08 18:32 | disposition home or self-care (01) ==
LOC: ER 11:06
DX: G43.909 Migraine, unspecified, not intractable, without status migrainosus (principal); I10 Essential (primary) hypertension; Z88.6 Allergy status to analgesic agent; Z88.5 Allergy status to narcotic agent; Z88.8 Allergy status to other drugs, medicaments and biological substances; Z79.899 Other long term (current) drug therapy
CPT/HCPCS: 96361; 96372; 96374; 96375; 99284; J0780; J1100; J1885; J3360; J7030; J3030

== ENCOUNTER 2020-07-16 16:25 | Emergency (ER) | payer MEDICAID ==
[~2020-07-16] VITALS: Ht 162.6 cm; Wt 77.0 kg
[2020-07-16] MEDS ORDERED: ketorolac tromethamine 15mg/ml inj. IV ONE (17:20)
[2020-07-16] MEDS ORDERED: proCHLORperazine 10 MG/2 ml inj IM ONE (17:20)
[2020-07-16] MEDS ORDERED: normal saline 1000ML IV soln IVB ONE (17:20)
--- NOTE | 2020-07-16 17:36 | NUR ---
to ct scan linen change, pericare: some stool, moderate urine: perivaginal and perianal area appear swollen and tender, straight cathed and barrier cream applied and new diaper
[2020-07-16] MEDS ORDERED: dexamethasone 4mg/ml inj IM ONE (18:22)
[2020-07-16] MEDS ORDERED: SUMAtriptan succ. 6 MG/0.5ml vial SQ ONE (18:55)
[2020-07-16] MEDS ORDERED: diazepam inj 5 MG/ML inj. IV ONE (18:55)
[2020-07-16 19:23] VITALS: BP 143/73
== END 2020-07-16 20:06 | disposition home or self-care (01) ==
LOC: ER 16:26
DX: G43.909 Migraine, unspecified, not intractable, without status migrainosus (principal); I10 Essential (primary) hypertension; G89.29 Other chronic pain; E07.9 Disorder of thyroid, unspecified; Z88.8 Allergy status to other drugs, medicaments and biological substances; Z79.899 Other long term (current) drug therapy; Z90.710 Acquired absence of both cervix and uterus; Z98.890 Other specified postprocedural states; Z86.718 Personal history of other venous thrombosis and embolism
CPT/HCPCS: 96361; 96372; 96374; 96375; 99284; J0780; J1100; J1885; J3360; J7030; J3030

== ENCOUNTER 2020-07-25 12:31 | Emergency (ER) | payer MEDICAID ==
[~2020-07-25] VITALS: Ht 162.6 cm; Wt 89.5 kg
[2020-07-25] MEDS ORDERED: dexamethasone sod phosphate 10mg/ml inj IV STA (14:27)
[2020-07-25] MEDS ORDERED: normal saline 1000ML IV soln IVB ONE (14:30)
[2020-07-25] MEDS ORDERED: diazepam inj 5 MG/ML inj. IV ONE (14:30)
[2020-07-25] MEDS ORDERED: proCHLORperazine 10 MG/2 ml inj IV ONE (14:30)
[2020-07-25] MEDS ORDERED: SUMAtriptan succ. 6 MG/0.5ml vial SQ ONE (14:30)
[2020-07-25 17:41] VITALS: BP 136/72
== END 2020-07-25 18:04 | disposition home or self-care (01) ==
LOC: ER 12:31
DX: G43.909 Migraine, unspecified, not intractable, without status migrainosus (principal); M54.2 Cervicalgia; I10 Essential (primary) hypertension; G89.29 Other chronic pain; Z90.710 Acquired absence of both cervix and uterus; Z98.890 Other specified postprocedural states; Z88.8 Allergy status to other drugs, medicaments and biological substances; Z79.899 Other long term (current) drug therapy
CPT/HCPCS: 96361; 96372; 96374; 96375; 99285; J0780; J1100; J3360; J7030; J3030

== ENCOUNTER 2020-08-09 15:20 | Emergency (ER) | payer MEDICAID ==
[~2020-08-09] VITALS: Ht 162.6 cm; Wt 89.5 kg
[2020-08-09] MEDS ORDERED: ketorolac tromethamine 15mg/ml inj. IV ONE (19:40)
[2020-08-09] MEDS ORDERED: normal saline 1000ml 1,000 ML IV ONE (19:40)
[2020-08-09] MEDS ORDERED: SUMAtriptan succ. 6 MG/0.5ml vial SQ ONE (19:40)
[2020-08-09] MEDS ORDERED: acetaminophen 325mg tablet PO ONE (19:40)
[2020-08-09] MEDS ORDERED: proCHLORperazine 10 MG/2 ml inj IV ONE (19:40)
[2020-08-09] MEDS ORDERED: diazepam inj 5 MG/ML inj. IV ONE (21:00)
[2020-08-09 22:25] VITALS: BP 113/64
== END 2020-08-09 22:26 | disposition home or self-care (01) ==
LOC: ER 15:21
DX: G43.909 Migraine, unspecified, not intractable, without status migrainosus (principal); R11.0 Nausea; I10 Essential (primary) hypertension; G89.29 Other chronic pain; Z90.710 Acquired absence of both cervix and uterus; Z98.890 Other specified postprocedural states; Z88.8 Allergy status to other drugs, medicaments and biological substances; Z88.1 Allergy status to other antibiotic agents; Z79.899 Other long term (current) drug therapy
CPT/HCPCS: 96361; 96372; 96374; 96375; 99284; J0780; J1885; J3360; J7030; J3030

== ENCOUNTER 2020-08-15 21:49 | Emergency (ER) | payer MEDICAID ==
[~2020-08-15] VITALS: Ht 162.6 cm; Wt 83.3 kg
[2020-08-15 23:01] LABS: URINE HCG NEGATIVE (NEG)
[2020-08-15 23:05] LABS: BASOPHILS % (AUTO) 0.9 % (0-1); EOSINOPHILS # (AUTO) 0.1 X10'3 (0-0.9); EOSINOPHILS % (AUTO) 1.9 % (0-6); HEMATOCRIT 41.9 % (35.0-45.0); HEMOGLOBIN 14.3 g/dl (12.0-16.0); LYMPHOCYTES # (AUTO) 2.6 X10'3 (1.1-4.8); LYMPHOCYTES % (AUTO) 46.4 % (21-51); MEAN CORPUSCULAR HEMOGLOBIN 34.2 PG (27.0-31.0); MEAN CORPUSCULAR HGB CONC 34.2 g/dL (33.0-36.5); MEAN CORPUSCULAR VOLUME 99.9 FL (78-98); MEAN PLATELET VOLUME 7.5 FL (7.4-10.4); MONOCYTES # (AUTO) 0.6 X10'3 (0-0.9); MONOCYTES % (AUTO) 10.7 % (2-12); NEUTROPHILS # (AUTO) 2.2 X10'3 (1.8-7.7); NEUTROPHILS % (AUTO) 40.1 % (42-75); PLATELET COUNT 224 X10'3 (140-440); RED BLOOD COUNT 4.19 X10'6 (4.20-5.60); RED CELL DISTRIBUTION WIDTH 13.9 % (11.5-14.5); WHITE BLOOD COUNT 5.5 X10'3 (4.5-11.0)
[2020-08-15 23:07] LABS: CLARITY,URINE CLEAR (Clear); COLOR,URINE YELLOW (Yellow); GLUCOSE, URINE NEGATIVE (Neg); KETONES,URINE NEGATIVE (Neg); LEUKOCYTE ESTERASE ,URINE NEGATIVE (Neg); NITRITES, URINE NEGATIVE (Neg); OCCULT BLOOD,URINE NEGATIVE (Neg); PROTEIN,URINE NEGATIVE (Neg); UROBILINOGEN,URINE 0.2 E.U/dL (0.2-1.0)
[2020-08-15 23:12] LABS: ALANINE AMINOTRANSFERASE 47 U/L (12-78); ALBUMIN 4.1 G/DL (3.4-5.0); ALKALINE PHOSPHATASE 108 IU/L (46-116); ANION GAP 13 (8-16); ASPARTATE AMINO TRANSFERASE 40 U/L (10-37); BILIRUBIN,TOTAL 0.6 MG/DL (0.1-1.0); BLOOD UREA NITROGEN 12 MG/DL (7-18); CALCIUM 9.3 MG/DL (8.5-10.1); CHLORIDE 106 MMOL/L (99-107); CREATININE 1.09 MG/DL (0.40-0.90); GLUCOSE 91 MG/DL (70-104); LIPASE < 50 U/L (73-393); POTASSIUM 3.8 MMOL/L (3.5-5.1); SODIUM 141 MMOL/L (135-145); TOTAL CARBON DIOXIDE 21.7 MMOL/L (24-32); TOTAL PROTEIN 8.3 G/DL (6.4-8.2); eGFR 51 ML/MIN
[2020-08-15 23:16] LABS: UA COLLECTION TYPE CLN CATCH MIDSTREAM
[2020-08-16 00:50] VITALS: BP 143/77
[2020-08-16] MEDS ORDERED: ondansetron/PF 4mg/2ml inj IV ONE (01:10)
[2020-08-16] MEDS ORDERED: morphine 4 MG/ML inj SYRINge IV PRN (01:10)
[2020-08-16] MEDS ORDERED: HYDR-3972 PO (02:38)
[2020-08-16] MEDS ORDERED: HYDROcodone/acetaminophen 10/325mg tab PO ONE (02:40)
--- NOTE | 2020-08-16 13:44 | NUR ---
PT WAS CALLED AND NOTIED THAT AT DC SHE LEFT WITHOUT RECEIVING HER DC PAPERWORK AND RX. PT HAS RETURNED, DC INSTRUCTIONS AND RX WAS REVIEWED WITH PT AND QUESTIONS ANSWERED.
== END 2020-08-16 02:51 | disposition home or self-care (01) ==
LOC: ER 21:49
DX: R10.31 Right lower quadrant pain (principal); R19.7 Diarrhea, unspecified; R39.15 Urgency of urination; G43.909 Migraine, unspecified, not intractable, without status migrainosus; I10 Essential (primary) hypertension; G89.29 Other chronic pain; Z90.49 Acquired absence of other specified parts of digestive tract; Z90.710 Acquired absence of both cervix and uterus; Z98.890 Other specified postprocedural states; Z88.1 Allergy status to other antibiotic agents; Z88.8 Allergy status to other drugs, medicaments and biological substances; Z79.899 Other long term (current) drug therapy
CPT/HCPCS: 36415; 74176; 80053; 81003; 81025; 83690; 85025; 96374; 96375; 99284; J2270; J2405

== ENCOUNTER 2021-01-15 12:44 | Emergency (ER) | payer MEDICAID ==
[~2021-01-15] VITALS: Ht 162.6 cm; Wt 81.8 kg
[2021-01-15 13:12] VITALS: BP 157/82
[2021-01-15] MEDS ORDERED: dexamethasone sod phosphate 10mg/ml inj IV STA (15:44)
[2021-01-15] MEDS ORDERED: ketorolac tromethamine 15mg/ml inj. IV ONE (15:45)
[2021-01-15] MEDS ORDERED: normal saline 1000ML IV soln IVB ONE (15:45)
[2021-01-15] MEDS ORDERED: metoclopramide 5 mg/ml inj IV ONE (15:45)
[2021-01-15] MEDS ORDERED: LORazepam 2 mg/ml vial IV ONE (15:45)
[2021-01-15] MEDS ORDERED: ketorolac trometh. 30mg/ml inj. IV ONE (16:20)
== END 2021-01-15 17:45 | disposition home or self-care (01) ==
LOC: ER 12:45
DX: G43.909 Migraine, unspecified, not intractable, without status migrainosus (principal); G89.29 Other chronic pain; I10 Essential (primary) hypertension; E07.9 Disorder of thyroid, unspecified; Z90.49 Acquired absence of other specified parts of digestive tract; Z90.710 Acquired absence of both cervix and uterus; Z98.890 Other specified postprocedural states; Z90.721 Acquired absence of ovaries, unilateral; Z88.8 Allergy status to other drugs, medicaments and biological substances; Z79.2 Long term (current) use of antibiotics; Z79.899 Other long term (current) drug therapy
CPT/HCPCS: 96374; 96375; 99284; J1100; J1885; J2060; J2765; J7030

== ENCOUNTER 2021-01-29 17:34 | Emergency (ER) | payer MEDICAID ==
[~2021-01-29] VITALS: Ht 162.6 cm; Wt 83.2 kg
[2021-01-29] MEDS ORDERED: ketorolac trometh. 30mg/ml inj. IM ONE (18:15)
[2021-01-29] MEDS ORDERED: proCHLORperazine 10 MG/2 ml inj IM ONE (18:15)
[2021-01-29 20:28] VITALS: BP 115/69
== END 2021-01-29 20:29 | disposition home or self-care (01) ==
LOC: ER 17:34
DX: G43.909 Migraine, unspecified, not intractable, without status migrainosus (principal); I10 Essential (primary) hypertension; G89.29 Other chronic pain
CPT/HCPCS: 96372; 99284; J0780; J1885

== ENCOUNTER 2021-02-18 15:07 | Emergency (ER) | payer MEDICAID ==
[~2021-02-18] VITALS: Ht 162.6 cm; Wt 89.5 kg
[2021-02-18] MEDS ORDERED: ketorolac tromethamine 15mg/ml inj. IV ONE (17:10)
[2021-02-18] MEDS ORDERED: normal saline 1000ml 1,000 ML IV ONE ×2 (17:10)
[2021-02-18] MEDS ORDERED: proCHLORperazine 10 MG/2 ml inj IV ONE (17:10)
[2021-02-18] MEDS ORDERED: LORazepam 2 mg/ml vial IV ONE (18:15)
[2021-02-18] MEDS ORDERED: SUMAtriptan succ. 6 MG/0.5ml vial SQ ONE (18:15)
[2021-02-18 18:35] VITALS: BP 122/62
== END 2021-02-18 18:58 | disposition home or self-care (01) ==
LOC: ER 15:08
DX: G43.909 Migraine, unspecified, not intractable, without status migrainosus (principal); I10 Essential (primary) hypertension; G89.29 Other chronic pain; Z90.49 Acquired absence of other specified parts of digestive tract; Z90.710 Acquired absence of both cervix and uterus; Z90.721 Acquired absence of ovaries, unilateral; Z88.8 Allergy status to other drugs, medicaments and biological substances; Z79.2 Long term (current) use of antibiotics; Z79.899 Other long term (current) drug therapy
CPT/HCPCS: 96361; 96372; 96374; 96375; 99284; J0780; J1885; J2060; J3030; J7030; 99285

== ENCOUNTER 2021-02-27 16:57 | Emergency (ER) | payer MEDICAID ==
[~2021-02-27] VITALS: Ht 162.6 cm; Wt 86.4 kg
[2021-02-27 17:16] VITALS: BP 120/77
[2021-02-28] MEDS ORDERED: acetaminophen 325mg tablet PO ONE (00:25)
[2021-02-28] MEDS ORDERED: metoclopramide 5 mg/ml inj IM ONE (00:25)
== END 2021-02-28 01:07 | disposition home or self-care (01) ==
LOC: ER 16:58
DX: G43.909 Migraine, unspecified, not intractable, without status migrainosus (principal); I10 Essential (primary) hypertension; G89.29 Other chronic pain; Z90.49 Acquired absence of other specified parts of digestive tract; Z90.710 Acquired absence of both cervix and uterus; Z98.890 Other specified postprocedural states; Z88.8 Allergy status to other drugs, medicaments and biological substances; Z88.1 Allergy status to other antibiotic agents; Z79.899 Other long term (current) drug therapy
CPT/HCPCS: 96372; 99283; J2765

== ENCOUNTER 2021-03-02 08:47 | Emergency (ER) | payer MEDICAID ==
[~2021-03-02] VITALS: Ht 162.6 cm; Wt 86.8 kg
[2021-03-02] MEDS ORDERED: dexamethasone sod phosphate 10mg/ml inj IM STA (09:09)
[2021-03-02] MEDS ORDERED: ketorolac trometh. 30mg/ml inj. IM ONE (09:10)
[2021-03-02] MEDS ORDERED: LORazepam 2 mg/ml vial IM ONE (09:10)
--- NOTE | 2021-03-02 09:48 | NUR ---
PATIENT HAS BEEN MEDICATED. SHE WAS MEDICATION COMPLIANT. SHE IS RESTING QUIETLY WITH LIGHTS DIMMED.
[2021-03-02 12:00] VITALS: BP 108/62
== END 2021-03-02 12:03 | disposition home or self-care (01) ==
LOC: ER 08:48
DX: M54.81 Occipital neuralgia (principal); G43.909 Migraine, unspecified, not intractable, without status migrainosus; H53.149 Visual discomfort, unspecified; G89.29 Other chronic pain; I10 Essential (primary) hypertension; Z90.49 Acquired absence of other specified parts of digestive tract; Z79.899 Other long term (current) drug therapy; Z79.2 Long term (current) use of antibiotics; Z88.8 Allergy status to other drugs, medicaments and biological substances
CPT/HCPCS: 96372; 99284; J1100; J1885; J2060

== ENCOUNTER 2021-06-12 09:30 | Emergency (ER) | payer MEDICAID ==
[~2021-06-12] VITALS: Ht 162.6 cm; Wt 88.6 kg
[2021-06-12 11:22] VITALS: BP 107/68
[2021-06-12] MEDS ORDERED: metoclopramide 5 mg/ml inj IV ONE (12:00)
[2021-06-12] MEDS ORDERED: LORazepam 2 mg/ml vial IV ONE (12:00)
[2021-06-12] MEDS ORDERED: normal saline 1000ML IV soln IVB ONE (12:00)
[2021-06-12] MEDS ORDERED: ketorolac tromethamine 15mg/ml inj. IV ONE (14:15)
== END 2021-06-12 14:42 | disposition home or self-care (01) ==
LOC: ER 09:30
DX: G43.909 Migraine, unspecified, not intractable, without status migrainosus (principal); R42 Dizziness and giddiness; I10 Essential (primary) hypertension; G89.29 Other chronic pain; Z90.49 Acquired absence of other specified parts of digestive tract; Z90.710 Acquired absence of both cervix and uterus; Z90.721 Acquired absence of ovaries, unilateral; Z88.8 Allergy status to other drugs, medicaments and biological substances; Z79.899 Other long term (current) drug therapy
CPT/HCPCS: 96361; 96374; 96375; 99284; J1885; J2060; J2765; J7030

== ENCOUNTER 2022-04-30 05:37 | Emergency (ER) | payer MEDICAID ==
[~2022-04-30] VITALS: Ht 162.6 cm; Wt 86.4 kg
[~2022-04-30 05:37] MED LIST changes: -AMIT-189 PO; +AMIT50TA15 PO
[2022-04-30] MEDS ORDERED: ketorolac tromethamine 15mg/ml inj. IV ONE (06:20)
[2022-04-30] MEDS ORDERED: diazepam inj 5 MG/ML inj. IV ONE (06:20)
[2022-04-30] MEDS ORDERED: proCHLORperazine 10 MG/2 ml inj IV ONE (06:20)
[2022-04-30] MEDS ORDERED: normal saline 1000ML IV soln IVB ONE (06:20)
[2022-04-30 08:29] VITALS: BP 108/67
== END 2022-04-30 08:31 | disposition home or self-care (01) ==
LOC: ER 05:37
DX: G43.909 Migraine, unspecified, not intractable, without status migrainosus (principal); I10 Essential (primary) hypertension; G89.29 Other chronic pain; Z90.49 Acquired absence of other specified parts of digestive tract; Z90.710 Acquired absence of both cervix and uterus; Z98.890 Other specified postprocedural states; Z88.8 Allergy status to other drugs, medicaments and biological substances; Z88.5 Allergy status to narcotic agent; Z79.899 Other long term (current) drug therapy
CPT/HCPCS: 96361; 96374; 96375; 99284; J0780; J1885; J3360; J7030

== ENCOUNTER 2022-07-10 11:34 | Emergency (ER) | payer MEDICAID ==
[~2022-07-10] VITALS: Ht 162.6 cm; Wt 86.4 kg
[2022-07-10 12:21] VITALS: BP 119/63
[2022-07-10] MEDS ORDERED: diazepam inj 5 MG/ML inj. IV ONE (14:45)
[2022-07-10] MEDS ORDERED: normal saline 1000ml 1,000 ML IV ONE (14:45)
[2022-07-10] MEDS ORDERED: proCHLORperazine 10 MG/2 ml inj IV ONE (14:45)
== END 2022-07-10 17:38 | disposition home or self-care (01) ==
LOC: ER 11:35
DX: G43.909 Migraine, unspecified, not intractable, without status migrainosus (principal); I10 Essential (primary) hypertension; G89.29 Other chronic pain; E03.9 Hypothyroidism, unspecified; Z88.8 Allergy status to other drugs, medicaments and biological substances; Z88.5 Allergy status to narcotic agent; Z79.899 Other long term (current) drug therapy
CPT/HCPCS: 96374; 96375; 99284; J0780; J3360; J7030

== ENCOUNTER 2022-11-07 08:46 | Emergency (ER) | payer MEDICAID ==
[~2022-11-07] VITALS: Ht 162.6 cm; Wt 90.9 kg
[~2022-11-07 08:46] MED LIST changes: -GABA-534 PO; +GABA-535 PO
[2022-11-07 08:49] VITALS: TEMP 98.1
[2022-11-07] MEDS ORDERED: ketorolac trometh. 30mg/ml inj. IV ONE (09:05)
[2022-11-07] MEDS ORDERED: proCHLORperazine 10 MG/2 ml inj IV ONE (09:05)
[2022-11-07] MEDS ORDERED: normal saline 1000ml 1,000 ML IV ONE (09:05)
[2022-11-07 10:28] VITALS: BP 120/58; PULSE 74; O2SAT 98
[2022-11-07 10:52] VITALS: RESP 14
[2022-11-07] MEDS ORDERED: PROC-8 PO (11:10)
--- NOTE | 2022-11-07 11:25 | NUR ---
DISCHARGE COMPLETED BY FLORENTIN ELIZABETH ORIENTANUJA. PT LEFT ED AMBULATORY IN STABLE CONDITION. IV DISCONTINUED WITH TIP INTACT AND NO COMPLICATION. PT VERBALIZED UNDERSTANDING TO ALL DISCHARGE/RX INSTRUCTIONS PROVIDED.
== END 2022-11-07 11:18 | disposition home or self-care (01) ==
LOC: ER 08:46
DX: G43.909 Migraine, unspecified, not intractable, without status migrainosus (principal)
CPT/HCPCS: 96361; 96374; 96375; 99284; J0780; J1885; J7030

== ENCOUNTER 2023-01-23 13:27 | Emergency (ER) | payer MEDICAID ==
[~2023-01-23] VITALS: Ht 162.6 cm; Wt 80.1 kg
[~2023-01-23 13:27] MED LIST changes: +PROC-8 PO
[2023-01-23 13:44] VITALS: TEMP 98
[2023-01-23] MEDS ORDERED: proCHLORperazine 10 MG/2 ml inj IV ONE (14:25)
[2023-01-23] MEDS ORDERED: normal saline 1000ml 1,000 ML IV ONE (14:25)
[2023-01-23] MEDS ORDERED: LORazepam 2 mg/ml vial IV ONE (14:25)
[2023-01-23 15:55] VITALS: BP 164/89; PULSE 62; RESP 17; O2SAT 97
== END 2023-01-23 15:58 | disposition home or self-care (01) ==
LOC: ER 13:28
DX: G43.909 Migraine, unspecified, not intractable, without status migrainosus (principal); I10 Essential (primary) hypertension; G89.29 Other chronic pain; Z90.49 Acquired absence of other specified parts of digestive tract; Z79.899 Other long term (current) drug therapy; Z79.2 Long term (current) use of antibiotics; Z88.8 Allergy status to other drugs, medicaments and biological substances
CPT/HCPCS: 96361; 96374; 96375; 99284; J0780; J2060; J7030

== ENCOUNTER 2024-09-06 09:47 | Emergency (ER) | payer MEDICAID ==
[~2024-09-06] VITALS: Ht 162.6 cm; Wt 93.0 kg
[~2024-09-06 09:47] MED LIST changes: +SENN-36 PO; -SENN1TAB82 PO; +TOPI-255 PO; -TOPI25TA49 PO
[2024-09-06 09:51] VITALS: BP 169/72; PULSE 72; O2SAT 98
--- NOTE | 2024-09-06 10:02 | Physician Documentation ---
History of Present Illness ~ Chief Complaint: Mechanical Fall Stated Complaint: FALL/HEAD INJURY Time Seen by MD: 09:57 Primary Medical Doctor: BELKIS MERCADO HPI 63-year-old female presents to the ED with a complaint of headache and right brow pain after having a bad dream yesterday and falling out striking her head. States that she does not take blood thinners but does have a headache and some light sensitivity. Denies any loss of consciousness Tetanus within 5 Years?: Yes Medication Reconciliation Allergies: Coded Allergies: bupropion (Verified Allergy, Unknown, 09/06/24) MADE HER FEEL FUNNY AND GAVE HER A RASH cefaclor (Verified Allergy, Unknown, rash, itch, 09/06/24) diphenhydramine (Verified Allergy, Unknown, heart races, starts and stops, 09/06/24) hydromorphone (Verified Allergy, Unknown, rash itch, 09/06/24) Scheduled Amitriptyline Hcl* (Elavil*), 1 TAB PO HS, (Reported) Bacillus Coagulans (Probiotic), 1 CAP PO Q12H, (Reported) Duloxetine Hcl* (Cymbalta*), 3 CAP PO DAILY, (Reported) Gabapentin (Gabapentin), 1 CAP PO BID, (Reported) Levothyroxine Sodium (Synthroid), 0.5 TAB PO DAILY, (Reported) Mirtazapine (Remeron), 1 TAB PO HS, (Reported) Pantoprazole Sodium (PROTONIX tablet), 1 TAB PO DAILY, (Reported) Rivaroxaban (Xarelto), 1 TAB PO DAILY Sennosides/Docusate Sodium (Senna-Docusate Sodium Tablet), 1 TAB PO BID, (Reported) Tizanidine Hcl (Zanaflex), 4 MG PO HS, (Reported) Topiramate (Topiramate), 1 TAB PO DAILY, (Reported) Valproic Acid (Valproic Acid), 1 CAP PO BID, (Reported) Scheduled PRN Prochlorperazine Maleate (Compazine), 1 TAB PO QID PRN PRN for nausea/vomiting Sumatriptan Succinate (Sumatriptan Succinate), 1 TAB PO DAILY PRN for migraine headaches, (Reported) Zolpidem Tartrate* (Ambien*), 1 TAB PO HS PRN for INSOMNIA, (Reported) Past Medical History Past Medical History: Headache, Migraine, Hypertension, Thyroid (unspecified), Chronic Pain, *PSYCH* Past Surgical History: abdominal surgery, cholecystectomy, hysterectomy, orthopedic surgeries, other Other Past Surgical History: oophorectomy, neck surgeries Alcohol Use: None Drug Use: none Lives with: Family Lives In: Home Physical Exam Vital Signs: Temperature: 97.9, Heart Rate: 72, Respiratory Rate: 18, BP: 169/72, Pulse Oximetry: 98, Weight: 93.000 Oxygen Flow Rate: 0 Progress Results/Orders Results/Orders Orders - THA DEY OPTICAL MECHANIC Ct Head (09/06/24 09:57) Completed Orders - THA DEY NP Ct Head (09/06/24 09:57) Ketorolac Trometh 15mg/Ml Vial (Toradol (09/06/24 11:00) Medications Received in ER Medications (Trade) Dose Ordered Sig/Deandre Route PRN Reason Start Time Stop Time Status Last Admin Dose Admin (Toradol injection) 15 mg ONCE ONCE IM 09/06/24 11:00 09/06/24 11:04 DC 09/06/24 11:08 15 MG Vital Signs 09/06/24 09/06/24 09/06/24 09:51 11:08 11:16 Temp 97.9 97.9 Pulse 72 Resp 18 16 B/P (MAP) 169/72 Pulse Ox 98 O2 Flow Rate 0 Medical Decision Making Findings CT indicates no evidence of intracranial abnormalities of acute fracture or bleed. Patien meets criteria for discharge and outpatient evaluation Differential Dx:Considerations: Include: Closed head injury, Cardiac injury, Fracture(s), Intraabdominal injury, Pneumothorax, Cerebral contusion, Pulmonary contusion, Spine injury, Tracheal injury, Urological injury, Vascular injury, Abrasion(s), Contusion(s), Foreign body(s), Hematoma(s), Laceration(s), Encephalopathy, Other Departure Disposition: 01 HOME / SELF CARE / HOMELESS Impression: Primary Impression: Fall Condition: Stable Discharge Instructions: Fall Prevention in the Home, Adult, [id number] Referrals: NO PRIMARY CARE PROVIDER (PCP) Signature Scribe Signature: yt Attestation: Scribed for Tha Dey Mussel Farmer by Tha Diaz NP . 09/06/24 18:24 THA DEY NP Sep 06, 2024 10:02
--- NOTE | 2024-09-06 10:36 | RADIOLOGY REPORT ---
EXAM: CT CT HEAD HISTORY: head injury COMPARISON: None TECHNIQUE: Noncontrast axial CT images of the head were performed. Sagittal and coronal reformatted i mages were obtained. This CT exam was performed using 1 or more of the following dose reduction techn iques: Automated exposure control, adjustment of the mA and/or kv according to patient size, or the u se of iterative reconstruction techniques. Radiation Dose: CTDI volume is 65.23 mGy. Dose-length product is 1031.13 mGy*cm FINDINGS: There is global brain atrophy. No intracranial hemorrhage, mass, midline shift, hydrocephalus, or ev idence of acute large vessel infarct. There is right cerebellar tonsillar ectopia without evidence of Chiari I malformation. There is mucosal thickening of the right ethmoid and bilateral maxillary sinu ses, not fully imaged here. The bilateral mastoid air cells and middle ear spaces are clear. No crani al fracture. There is right frontal supraorbital scalp edema without underlying cranial fracture. IMPRESSION: 1. Global brain atrophy without evidence of acute intracranial process. 2. Paranasal sinus disease, not fully imaged here. 3. Right frontal supraorbital scalp edema without underlying cranial fracture.
[2024-09-06 11:08] VITALS: RESP 16
[2024-09-06] MEDS: ketorolac trometh 15mg/ml vial 15 MG/ML ML IM ONE (11:08)
[2024-09-06 11:16] VITALS: TEMP 97.9
== END 2024-09-06 11:17 | disposition home or self-care (01) ==
LOC: ER 09:48
DX: G43.909 Migraine, unspecified, not intractable, without status migrainosus (principal); I10 Essential (primary) hypertension; Z90.49 Acquired absence of other specified parts of digestive tract; Z90.710 Acquired absence of both cervix and uterus; Z88.5 Allergy status to narcotic agent; Z88.1 Allergy status to other antibiotic agents; Z88.8 Allergy status to other drugs, medicaments and biological substances; Z79.899 Other long term (current) drug therapy; W18.09XA Striking against other object with subsequent fall, initial encounter; Y93.89 Activity, other specified; Y92.89 Other specified places as the place of occurrence of the external cause; Y99.8 Other external cause status
CPT/HCPCS: 70450; 96372; 99285; J1885

== ENCOUNTER 2024-12-09 18:00 | Emergency (ER) | payer MEDICAID ==
[~2024-12-09] VITALS: Ht 162.6 cm; Wt 90.4 kg
[~2024-12-09 18:00] MED LIST changes: +ZOLP5TAB19 PO; -ZOLP5TAB8 PO
--- NOTE | 2024-12-09 18:27 | ELECTROCARDIOGRAPH REPORT ---
[facility] Test Date: 2024-12-09 Test Time: 18:25:11 Pat Name: VERÓNICA DENSON Department: EMERGENCY ROOM Room: Gender: F Diagnostic Assistant: : 1960 Requested By: CHERRI DOMINGUEZ Order Number: [id number] Reading MD: Dr. Shiva Berman Measurements Intervals [place] Rate: 66 P: 38 MN: 144 QRS: 43 QRSD: 91 T: 32 QT: 406 QTc: 426 Interpretive Statements Sinus rhythm Borderline T wave abnormalities Electronically Signed On 12-10-2024 7:40:[address] Shiva Berman Please click the below link to view image of tracing.
[2024-12-09 18:51] LABS: MEAN PLATELET VOLUME 7.0 FL (7.4-10.4); RED CELL DISTRIBUTION WIDTH 14.2 % (11.5-14.5)
[2024-12-09 19:01] LABS: CREATININE 0.90 MG/DL (0.40-0.90); TOTAL CARBON DIOXIDE 27.0 MMOL/L (24-32); eCRCL 54 ML/MIN; eGFR 63 ML/MIN
--- NOTE | 2024-12-09 19:03 | Physician Documentation ---
History of Present Illness ~ Chief Complaint: Chest Pain Stated Complaint: SHOULDER PAIN Time Seen by MD: 21:11 Primary Medical Doctor: [facility] This is a 64-year-old female who presents with left shoulder pain that radiates to her left chest, patient reports pain is worse with breathing. Patient reports some nausea and shortness of breath. History as above. Patient also endorses some pathology associated with her uninfected right shoulder in his an MRI scheduled for this. Since that time she has been using her left side much more heavily. She had denies history of hypertension hyperlipidemia or diabetes. She does endorse history of some degree of history of heart disease in father of unknown age. She does not smoke Medication Reconciliation Allergies: Coded Allergies: bupropion (Verified Allergy, Unknown, 12/09/24) MADE HER FEEL FUNNY AND GAVE HER A RASH cefaclor (Verified Allergy, Unknown, rash, itch, 12/09/24) diphenhydramine (Verified Allergy, Unknown, heart races, starts and stops, 12/09/24) hydromorphone (Verified Allergy, Unknown, rash itch, 12/09/24) Scheduled Amitriptyline Hcl* (Elavil*), 1 TAB PO HS, (Reported) Bacillus Coagulans (Probiotic), 1 CAP PO Q12H, (Reported) Duloxetine Hcl* (Cymbalta*), 3 CAP PO DAILY, (Reported) Gabapentin (Gabapentin), 1 CAP PO BID, (Reported) Levothyroxine Sodium (Synthroid), 0.5 TAB PO DAILY, (Reported) Mirtazapine (Remeron), 1 TAB PO HS, (Reported) Pantoprazole Sodium (PROTONIX tablet), 1 TAB PO DAILY, (Reported) Rivaroxaban (Xarelto), 1 TAB PO DAILY Sennosides/Docusate Sodium (Senna-Docusate Sodium Tablet), 1 TAB PO BID, (Reported) Tizanidine Hcl (Zanaflex), 4 MG PO HS, (Reported) Topiramate (Topiramate), 1 TAB PO DAILY, (Reported) Valproic Acid (Valproic Acid), 1 CAP PO BID, (Reported) Scheduled PRN Prochlorperazine Maleate (Compazine), 1 TAB PO QID PRN PRN for nausea/vomiting Sumatriptan Succinate (Sumatriptan Succinate), 1 TAB PO DAILY PRN for migraine headaches, (Reported) Zolpidem Tartrate* (Ambien*), 1 TAB PO HS PRN for INSOMNIA, (Reported) Past Medical History Past Medical History: Headache, Migraine, Hypertension, Thyroid (unspecified), Chronic Pain, *PSYCH* Past Surgical History: abdominal surgery, cholecystectomy, hysterectomy, orthopedic surgeries, other Other Past Surgical History: oophorectomy, neck surgeries Alcohol Use: None Drug Use: none Lives with: Family Lives In: Home Review of Systems ROS As stated above in the HPI, otherwise all systems are reviewed and negative. Physical Exam Vital Signs: Temperature: 97.8, Source: Temporal, Heart Rate: 70, Respiratory Rate: 16, BP: 131/71, Pulse Oximetry: 96, Weight: 90.400 Physical Exam General: Patient is awake, alert, oriented x4 in no acute distress Head: Normocephalic and atraumatic. Eyes: Conjunctival normal. EOMI. PERRL. ENT: Mucous membranes moist. Neck: Supple, trachea is midline. Chest: Clear to auscultation bilaterally without rales, rhonchi, or wheezes. There is no accessory muscle use or retractions. Cardiac: RRR without murmurs, gallops, or rubs. Abd: Soft, nondistended, nontender, with normoactive bowel sounds. No guarding, rebound, or rigidity. Back: Tenderness to palpation to trapezius muscle on left distribution Progress Results/Orders Results/Orders Vital Signs 12/09/24 18:18 Temp 97.8 Pulse 70 Resp 16 B/P (MAP) 131/71 Pulse Ox 96 Laboratory Tests Test 12/09/24 18:31 12/09/24 20:34 White Blood Count 5.4 Red Blood Count 4.09 L Hemoglobin 13.9 Hematocrit 40.6 Mean Corpuscular Volume 99.4 H Mean Corpuscular Hemoglobin 33.9 H Mean Corpuscular Hemoglobin Concent 34.1 Red Cell Distribution Width 14.2 Platelet Count 273 Mean Platelet Volume 7.0 L Neutrophils (%) (Auto) 47.1 Lymphocytes (%) (Auto) 40.7 Monocytes (%) (Auto) 8.6 Eosinophils (%) (Auto) 2.7 Basophils (%) (Auto) 0.9 Neutrophils # (Auto) 2.5 Lymphocytes # (Auto) 2.2 Monocytes # (Auto) 0.5 Eosinophils # (Auto) 0.1 Basophils # (Auto) 0.1 CBC Comment Sodium Level 137 Potassium Level 3.7 Chloride Level 103 Carbon Dioxide Level 27.0 Anion Gap 7 L Blood Urea Nitrogen 10 Creatinine 0.90 Estimated GFR/1.73 m2 63 BUN/Creatinine Ratio 11.1 Glucose Level 105 H Calcium Level 8.9 Total Bilirubin 0.3 Aspartate Amino Transf (AST/SGOT) 43 H Alanine Aminotransferase (ALT/SGPT) 76 Alkaline Phosphatase 84 Troponin I High Sensitivity 4 4 Pro-B-Type Natriuretic Peptide < 30 Total Protein 8.2 Albumin 3.6 Globulin 4.6 H Albumin/Globulin Ratio 0.8 L Chemistry Comments Troponin I High Sens Percent Delta 0 Troponin I Hi Sens Absolute Change 0 EKG/XRAY/CT/US/VASC/MRI EKG : Additional Comment EKG interpreted by myself shows time of 1825, rate 66, sinus rhythm, normal axis, no ST changes Chest X-Ray : Additional Comments One view chest x-ray is negative for effusions, infiltrates and there is normal cardiac silhouette Medical Decision Making Additional information obtaine: old records Findings Patient presents to the emergency room for evaluation of shoulder pain that radiates to her chest. Differentials include but are not limited to musculoskeletal pain, pneumothorax, aortic pathology, pulmonary embolism, ACS therefore emergent labs and imaging indicated. Chest x-ray is reassuring. Troponins negative x2. Heart score of three. As pain is exacerbated with deep respirations and palpitation I do not feel patient requires investigation into aortic pathology or pulmonary embolism. I will give her additional pain medicine for her shoulder. Heart Score: 3 Differential Dx:Considerations: Include: angina, aortic dissection, chest wall pain, cholelithiasis, CHF, costochondritis, esophageal reflux/spasm, gastritis, herpes zoster, myocardial infarction, pericarditis, pleuritis, pancreatitis, pneumonia, pneumothorax, pulmonary embolus, other Departure Disposition: 01 HOME / SELF CARE / HOMELESS Impression: Primary Impression: Shoulder strain Additional Impression: Pleurisy Condition: Stable Discharge Instructions: Nonspecific Chest Pain, Adult, Pleurisy Referrals: NO PRIMARY CARE PROVIDER (PCP) Prescriptions Hydrocodone Bit/Acetaminophen 5/325 MG ([place] 5/325 MG) 5 Mg/325 Mg Tablet 1-2 TAB PO Q4-6 hours PRN for pain, #20 TAB Prov: AARON MEJIAS MD 12/09/24 Signature Scribe Signature: No scribe Attestation: The note accurately reflects work and decisions made by me.Aaron Mejias MD 12/09/24 21:36 CHERRI DOMINGUEZ Dec 09, 2024 19:03 AARON MEJIAS MD Dec 09, 2024 21:28
--- NOTE | 2024-12-09 19:05 | RADIOLOGY REPORT ---
CLINICAL HISTORY: pain LEFT TECHNIQUE: 3 views of the left shoulder were obtained. COMPARISON: None FINDINGS: No acute fracture or dislocation is seen. No soft tissue abnormality is evident. There are no significant degenerative changes. There is partially imaged cervical fusion hardware. IMPRESSION: NO ACUTE RADIOGRAPHIC ABNORMALITY OF THE LEFT SHOULDER.
[2024-12-09 19:09] LABS: PRO BRAIN NATRIURETIC PEPTIDE < 30 PG/ML (0-125)
[2024-12-09 21:31] VITALS: BP 119/62
[2024-12-09] MEDS ORDERED: HYDR-3965 PO (21:36)
[2024-12-09] MEDS: HYDROcodone/acetaminophen 10/325mg tab PO ONE (21:44)
[2024-12-09] MEDS: ondansetron 4mg rapidly disintigrating tab PO ONE (21:44)
[2024-12-09 21:49] VITALS: PULSE 82; TEMP 97.4; O2SAT 96
[2024-12-09 21:51] VITALS: RESP 20
--- NOTE | 2024-12-10 07:46 | RADIOLOGY REPORT ---
CHEST RADIOGRAPH Indication: pain Technique: Single frontal view of the chest was obtained Comparison: None FINDINGS: Lines and Tubes: None Lungs: No focal consolidation. Pleura: No effusion. No pneumothorax. Cardiomediastinal contours: Unremarkable Bones: No acute osseous abnormality. IMPRESSION: No acute cardiopulmonary disease. T [employer] YULISSA
== END 2024-12-09 21:51 | disposition home or self-care (01) ==
LOC: ER 18:00
DX: S46.912A Strain of unspecified muscle, fascia and tendon at shoulder and upper arm level, left arm, initial encounter (principal); R09.1 Pleurisy; R06.02 Shortness of breath; I10 Essential (primary) hypertension; Z88.1 Allergy status to other antibiotic agents; Z88.5 Allergy status to narcotic agent; Z88.8 Allergy status to other drugs, medicaments and biological substances; Z90.49 Acquired absence of other specified parts of digestive tract; Z90.710 Acquired absence of both cervix and uterus; Z90.721 Acquired absence of ovaries, unilateral; X58.XXXA Exposure to other specified factors, initial encounter; Y93.89 Activity, other specified; Y92.89 Other specified places as the place of occurrence of the external cause; Y99.8 Other external cause status
CPT/HCPCS: 36415; 71045; 73030; 80053; 83880; 84484; 85025; 93005; 99285